=== PATIENT | male | born 1945 | race Caucasian/White ===

== ENCOUNTER → 2017-01-11 | Outpatient (CLI) | payer OTHER ==
[~2017-01-11] MED LIST: ASPI81TA21 PO; ATOR-22 PO; LPR25 PO; MULTTAB58 PO; NITR0.4S UT; PRED-301 PO
[2017-01-11 11:44] LABS: HEMATOCRIT 42.4 % (42-52); MEAN CELL VOLUME 91.4 fL (80-100); MEAN CORPUSCULAR HEMOGLOBIN 32.1 pg (25-34); MEAN CORPUSCULAR HGB CONC 35.1 g/dl (32-36); MEAN PLATELET VOLUME 10.9 fL (7.4-10.4); PLATELET COUNT 283 K/uL (130-400); RED BLOOD COUNT 4.64 M/uL (4.7-6.1); WHITE BLOOD COUNT 11.54 K/uL (4.8-10.8)
[2017-01-11 12:38] LABS: ALT/SGPT 29 U/L (12-78); AST/SGOT 22 U/L (15-37); GLUCOSE 95 mg/dl (70-99)
[2017-01-11 12:39] LABS: ALB/GLOB RATIO 0.7 (0.9-2); ALKALINE PHOSPHATASE 87 U/L (45-117); BLOOD UREA NITROGEN 10 mg/dl (7-18); BUN/CREATININE RATIO 11.6 (10-20); CARBON DIOXIDE 31 mmol/L (21-32); CHLORIDE 107 mmol/L (98-107); CHOLESTEROL 169 mg/dl (0-200); CHOLESTEROL/HDL RATIO 4.3; CREATININE 0.88 mg/dl (0.60-1.40); HDL CHOLESTEROL 39 mg/dl; LDL CHOLESTEROL CALCULATED 108 mg/dl; MAGNESIUM 2.2 mg/dl (1.8-2.4); POTASSIUM 4.2 mmol/L (3.5-5.1); SODIUM 142 mmol/L (136-145); TRIGLYCERIDES 108 mg/dl (0-150); VERY LOW DENSITY LIPOPROT CALC 22 mg/dl
== END | disposition home or self-care (01) ==
LOC: C.LABBC 08:51
PROVIDERS: ATTEND Internal Medicine Cardiovascular Disease
DX: E78.5 Hyperlipidemia, unspecified (principal); I25.10 Atherosclerotic heart disease of native coronary artery without angina pectoris; I48.91 Unspecified atrial fibrillation; E83.42 Hypomagnesemia

== ENCOUNTER → 2018-01-10 | Outpatient (CLI) | payer OTHER ==
[2018-01-10 11:10] LABS: HEMOGLOBIN 14.5 g/dL (14.0-18.0); MEAN CELL VOLUME 93.1 fL (80-100); MEAN CORPUSCULAR HEMOGLOBIN 32.2 pg (25-34); MEAN CORPUSCULAR HGB CONC 34.5 g/dl (32-36); MEAN PLATELET VOLUME 10.4 fL (7.4-10.4); PLATELET COUNT 292 K/uL (130-400); RED CELL DISTRIBUTION WIDTH CV 14.4 % (11.5-14.5); RED CELL DISTRIBUTION WIDTH SD 48.8 fL (36.4-46.3); WHITE BLOOD COUNT 10.34 K/uL (4.8-10.8)
[2018-01-10 11:53] LABS: AST/SGOT 27 U/L (15-37); GLUCOSE 101 mg/dl (70-99)
[2018-01-10 11:54] LABS: ALT/SGPT 38 U/L (12-78)
[2018-01-10 11:55] LABS: BLOOD UREA NITROGEN 16 mg/dl (7-18); CALCIUM 8.9 mg/dl (8.5-10.1); CARBON DIOXIDE 30 mmol/L (21-32); CHOLESTEROL 160 mg/dl (0-200); CREATININE 0.88 mg/dl (0.60-1.40); LDL CHOLESTEROL CALCULATED 106 mg/dl; POTASSIUM 4.2 mmol/L (3.5-5.1); SODIUM 139 mmol/L (136-145)
== END | disposition home or self-care (01) ==
LOC: C.LABBC 08:08
PROVIDERS: ATTEND Internal Medicine Cardiovascular Disease
DX: E78.5 Hyperlipidemia, unspecified (principal); I25.10 Atherosclerotic heart disease of native coronary artery without angina pectoris; I48.91 Unspecified atrial fibrillation; E83.42 Hypomagnesemia

== ENCOUNTER 2020-08-28 12:39 | Inpatient (IN) ==
[2020-08-28] MEDS ORDERED: SODIUM CHLORIDE 0.9% 1000ML 500 ML IV ONE (14:20)
--- NOTE | 2020-08-28 14:43 | Cardiology Consultation ---
Date of Consultation August 28, 2020 Assessment & Plan (1) Pericarditis: (2) Pericardial effusion with cardiac tamponade: (3) Coronary artery disease: (4) Paroxysmal atrial fibrillation: (5) S/P coronary artery stent placement: (6) Pulmonary hypertension: ASSESSMENT/PLAN: 1. Pericardial effusion with early cardiac tamponade: Early tamponade physiology on echo. Recommend fluid bolus of 500 mL. Avoid diuretics for now. Etiology likely due to rheumatoid arthritis as he has not had any recent viral illness that he is aware. Repeat echo tomorrow. Effusion is small and would avoid pericardiocentesis for now as there is no urgent indication. Hemodynamically he is stable. There is no significant pulsus paradoxus on personal exam. 2. Acute pericarditis: Likely related to rheumatoid arthritis. Aspirin 325 mg twice daily. Colchicine 0.6 mg p.o. b.i.d. x3 months. If no significant improvement, may require high-dose steroids as rheumatoid arthritis is the more likely underlying etiology. 3. Paroxysmal atrial fibrillation: Was in sinus rhythm on 08/24/2020 but curr ently in atrial fibrillation. Continue home dose of diltiazem. He has declined anticoagulation therapy and would not start currently given new pericardial effusion. 4. CAD s/p LAD PCI: Chest pain is not consistent with angina. Has had pain continually for many hours with negative troponin levels. Chest pain is consistent with pericarditis. Continue aspirin. For his pericarditis, choosing high-dose aspirin given the fact that he requires aspirin for his prior PCI. Has not tolerated beta-alonso due to significant fatigue on metoprolol. He has not tolerated Crestor or Lipitor and has declined other lipid lowering agents. 5. Pulmonary hypertension: Mild. Not previously known but has not had RVSP calculated recently. 6. Disposition: Cardiology will continue to follow. Patient care discussed with Dr. Moisés Mendoza of the primary hospitalist service. Highly complex medical issues. Thank you for allowing me to participate in the care of your patient. Please call for any other questions or concerns. Sincerely, Ciaran Gauthier M.D. History of Present Illness Reason for Consultation: CP, SOB, pericardial effusion Requesting Physician: Dr. Moisés Mendoza Attending Physician: Dr. Moisés Mendoza History of Present Illness Mr. Gatica is a pleasant 74-year-old gentleman with a history significant for CAD status post LAD stenting on 03/21/12, complicated by V. fib arrest, paroxysmal atrial fibrillation (1st diagnosed on 06/23/14), hyperlipidemia, and rheumatoid arthritis. On 03/21/12 he had stuttering angina. It eventually worsened prompting his t o drive him to the emergency department at [facility] in [place]. ECG demonstrated anterior ischemia and he underwent cardiac catheterization proximal LAD PCI as above. This was complicated by ventricular fibrillation requiring defibrillation and amiodarone therapy. His peak troponin was 8.16. Atrial fibrillation was diagnosed on 06/23/2014 in the office. He was asymptomatic and noted to be in atrial fibrillation with rapid ventricular response. A Holter monitor was applied later that day and he had already converted to sinus rhythm spontaneously. He has had the following procedures/studies: 1. Cardiac catheterization 03/21/12: PCI of proximal LAD with a 3 x 18 mm integrity BMS. LMCA distal 20%; proximal LAD had a hazy 99% stenosis with LEONARDO 2 flow, which underwent PCI. Circumflex luminal irregularities. Large ramus luminal irregularities. Dominant RCA with very large PDA which wrapped around the apex. V. fib arrest during cardiac catheterization. 2. Echo 03/24/12: Normal LV size and systolic function. EF 60-65%. Normal wall motion. RVSP normal. No significant valvular abnormalities. 3. Stress Echo 11/13/12: Negative at 94% MPHR. Negative ECG. Exercised 9 min. 4. Stress echo 11/09/13: Negative at 111% MPHR. 9 minutes 7 seconds on Gian protocol. Negative ECG. 5. Echo 07/12/14: Normal LV size, wall motion, systolic function. EF 60-65%. Mild left atrial dilation. No significant valvular abnormalities. Sinus rhythm. 6. Holter 06/23/14: Sinus rhythm. Atrial triplet. Occasional PACs. Rare PVCs. Very rare ventricular couplet. No symptoms reported. He is here today due to chest discomfort, shortness of breath, and pericardial effusion noted on CT scan. He first presented to the emergency department on 08/24/2020 with chest pain that persisted for several hours. He had negative troponin levels and ECG without ischemic changes. He was discharged home. When he felt fine for the next 2 and half days. Then last evening, after he ate supper and took a bath he developed central chest discomfort like a soreness and a gnawing pain. The pain became sharp if he laid down or took a deep breath. Throughout the night, he was unable to lie flat due to the pain and also orthopnea. His described him as being in distress. He came to the emergency department this morning and had a CT scan which was remarkable for pericardial effusion. This study was compromised by motion but there was no evidence of acute PE while the lower lobe pulmonary arteries were suboptimally evaluated. Bibasilar opacities, favoring atelectasis per Radiology. He was a lso noted to be in atrial fibrillation today while on 08/24/2020, he was in sinus rhythm. Dr. Fragoso informed me that he was hoping to admit him but that the patient wanted to be discharged. Once home, his called the on-call service to discuss his symptoms. After discussing things with he and his on the phone, I recommended that he come back to the emergency department for further evaluation. Within minutes of him arriving, I met him downstairs and we performed an echocardiogram demonstrating small pericardial effusion with early signs of tamponade physiology. He seemed much more comfortable while sitting upright and less comfortable while laying down. He tried taking nitroglycerin on 08/24 20 x 3 within 5 minutes with no improvement of his symptoms. EMS also gave more nitr oglycerin and aspirin. He recalls having pericarditis many years ago. He states that recently his rheumatoid arthritis medications have been changed. He had been on different medications for rheumatoid arthritis in the past but more recently, Arava was initiated. He then saw a new washer hand who recommended that he discontinue the medication and his last dose was on 08/25/2020. He denies fevers, chills, syncope, near-syncope, palpitations, or bleeding such as melena, hematochezia, or hematuria. Review of systems: As above. Review of systems otherwise negati ve/unremarkable. Family history: Sibling with CAD in her 60s. Family history of atrial fibrillation, rheumatoid arthritis, gastric cancer, breast cancer, CHF. Social history: Denies tobacco, alcohol, drug abuse. 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 He is . They have 6 children. 1 daughter has Bipolar disorder. 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 He is u naccompanied today. Allergies Allergy/AdvReac Type Severity Reaction Status Date / Time benzyl alcohol Allergy Intermediate swelling, Verified 08/28/20 13:44 infection etanercept Allergy Intermediate swelling, Verified 08/28/20 13:44 infection tromethamine Allergy Intermediate swelling, Verified 08/28/20 13:44 infection Home Medications Medication Instructions Recorded Confirmed Type cholecalciferol (vitamin D3) 25 1,000 units PO QAM cap 09/10/19 08/28/20 History mcg (1,000 unit) capsule magnesium oxide 400 mg (241.3 mg 400 mg PO PM tab 09/10/19 08/28/20 History magnesium) tablet aspirin 81 mg PO PM 08/24/20 08/28/20 History diltiazem HCl 120 mg PO PM 08/24/20 08/28/20 History leflunomide [Arava] 10 mg PO QAM 08/24/20 08/28/20 History prednisone 10 mg PO QAM 08/24/20 08/28/20 History acetaminophen [Tylenol Extra 1,000 mg PO Q6H PRN 08/28/20 08/28/20 History Strength] bismuth subsalicylate 525 mg PO QID 08/28/20 08/28/20 History [Pepto-Bismol] Patient History Medical History (Updated 08/28/20 @ 15:08 by Que Gauthier MD) CAD (coronary artery disease) Dyslipidemia Hypomagnesemia Myocardial infarct Paroxysmal atrial fibrillation Rheumatoid arthritis Surgical History S/P coronary artery stent placement Social History Smoking Status: Never smoker Preferred Language: Libyan Feels Safe at Home: Yes Physical Exam Physical Exam: Gen.: No acute distress. Alert and oriented. HEENT: Anicteric sclera. Neck: No appreciable JVD. No hepatic jugular reflux. No bruits. Normal carotid upstrokes bilaterally. Cardiac: PMI was nondisplaced. No ventricular heave. Irregularly irregular and mildly tachycardic. Normal S1-S2. No murmurs, rubs, or gallops. Pulmonary: Faint crackles at the bases, otherwise clear to auscultation bilaterally without wheezes, rales, or rhonchi. Abdomen: Soft, nontender, nondistended, with normoactive bowel sounds. No bruits noted. Extremities: 2+ radial pulses bilaterally. 2+ posterior tibialis pulses bilaterally. No edema or cyanosis. No palpable cords. Psychiatric: Affect appears appropriate. Results & Data ([facility]) Vital Signs (Past 12 Hours) Vital Signs Temp Pulse Resp BP Pulse Ox 08/28/20 13:31 112 H 33 H 137/97 94 08/28/20 12:58 109 H 27 H 143/97 H 97 08/28/20 12:43 36.6 C 112 H 22 97/60 L 94 Laboratory Results Labs 08/28/2020: WBC 16.06; hemoglobin 16.1; platelets 351; sodium 136; potassium 4.4; BUN 16; creatinine 1.09; glucose 133; AST 18; ALT 30; troponin undetectable; albumin 3.2; lipase 93 Diagnostic Findings ECG 08/28/2020 at 12:52 p.m.: AFib with RVR [address] chest 08/28/2020 reviewed as noted above in HPI section. PG Care Time/CCT Total # of Minutes Spent Total Time Spent with Patient: Total time spent is greater than 50% in coordination of care (as documented) at patient's floor/unit and/or counseling patient: Coding Level of Care Code 55089 Initial Inpt Care Lvl 3 Diagnoses Pericarditis I31.9 Pericardial effusion with cardiac tamponade I31.3; I31.4 Coronary artery disease I25.119 Associated angina: with unspecified angina Coronary Disease-Associated Artery/Lesion type: unspecified vessel or lesion type [place] vs. transplanted heart: [place] heart Paroxysmal atrial fibrillation I48.0 S/P coronary artery stent placement Z95.5 Pulmonary hypertension I27.20 (1) Coronary artery disease Associated angina: with unspecified angina Coronary Disease-Associated Artery/Lesion type: unspecified vessel or lesion type [place] vs. transplanted heart: [place] heart Qualified Code(s): I25.119 - Atherosclerotic heart disease of [place] coronary artery with unspecified angina pectoris
--- NOTE | 2020-08-28 14:43 | XCELERA ---
[id number]
--- NOTE | 2020-08-28 14:45 | History & Physical Report ---
Date of Service August 28, 2020 Assessment & Plan (1) Pericarditis: Classic symptoms. EKG doesn't appear to have significant ST elevations. Echo done in the ED shows pericardial effusion and signs of early tamponade. This is his second occurrence, having had an episode in his 20s that he does not remember the cause of or the treatment for. - Ddx includes autoimmune or idiopathic. Aortic dissection possibility was discussed with radiology. While the CTA chest contrast timing is not optimal for an aortic study, there is no indication on this exam of dissection. - IV fluid bolus given for early signs of tamponade on echo - ASA 325 mg PO BID & colchicine 0.6 mg PO BID - PPI daily for gastric protection - Morphine for pain - Discussed with cardiology (2) Atrial fibrillation with rapid ventricular response: Hx of paroxysmal afib with generally controlled rates and short duration. Has refused anticoagulation in the past. Now in more prolonged afib with mild RVR. - Discussed with cardiology - Defer further diltiazem gtt or stronger rate c ontrol given tamponade physiology. - Defer anticoagulation for now - Getting LE Dopplers. ED did CTA chest which was negative for significant PE. (3) Coronary artery disease: S/p [place] and LAD stent in 2011. - ASA as above (4) Rheumatoid arthritis: Sees Dr. Tiffany Mata in [place]. Had previously been on Enbrel, MTX, and prednisone, but he reports he "weaned himself off" as he felt he was too immunosuppressed. - Was recently on leflunomide, but now also off that. 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 (5) Person under investigation for COVID-19: He had close contact with a Covid(+) person on 08/21/2020. Had a rapid test that was positive, then NAAT test negative on 08/24. Presently with a cough. - Re-test given possible need for procedure inpatient. - Isolation precautions for now. (6) DVT prophylaxis: SCDs - Will be on high-dose ASA, plus may need procedure. Hold heparin for now. History of Present Illness Primary Care Provider: HARRIS Guillen 74yo M w/ hx of CAD who presents with pericarditis and pericardial effusion. Per the patient, he has had ongoing chest pain for about 3-4 weeks. He associates the pain with starting leflunomide for his rheumatoid arthritis. He reports the chest pain as centrally located with a squeezing sensation. It is worse when lying down and better when sitting forward. It is worse with deep inspiration. He reports some dizziness as well, but no nausea, no vomiting, no diaphoresis or radiation of the chest pain. Interestingly, this is his second occurrence of pericarditis. He reports in his mid-20s, he had another episode, though he does not recall a reason or what his treatment was at the time. He has visited the ED multiple times for the pain. Because the pain has been going on for some time, troponins were checked and when normal, he was sent home due to being under quarantine for a close Covid contact on 08/21/2020. He also had a positive initial test on 08/24, with the NAAT coming back negative. He is having some cough at this time. Allergies Allergy/AdvReac Type Severity Reaction Status Date / Time benzyl alcohol Allergy Intermediate swelling, Verified 08/28/20 13:44 infection etanercept Allergy Intermediate swelling, Verified 08/28/20 13:44 infection tromethamine Allergy Intermediate swelling, Verified 08/28/20 13:44 infection Home Medications Medication Instructions Recorded Confirmed Type cholecalciferol (vitamin D3) 25 1,000 units PO QAM cap 09/10/19 08/28/20 History mcg (1,000 unit) capsule magnesium oxide 400 mg (241.3 mg 400 mg PO PM tab 09/10/19 08/28/20 History magnesium) tablet aspirin 81 mg PO PM 08/24/20 08/28/20 History diltiazem HCl 120 mg PO PM 08/24/20 08/28/20 History leflunomide [Arava] 10 mg PO QAM 08/24/20 08/28/20 History prednisone 10 mg PO QAM 08/24/20 08/28/20 History acetaminophen [Tylenol Extra 1,000 mg PO Q6H PRN 08/28/20 08/28/20 History Strength] bismuth subsalicylate 525 mg PO QID 08/28/20 08/28/20 History [Pepto-Bismol] Past Med/Surg History Medical History (Updated 08/28/20 @ 15:08 by Que Gauthier MD) CAD (coronary artery disease) Dyslipidemia Hypomagnesemia Myocardial infarct Paroxysmal atrial fibrillation Rheumatoid arthritis Surgical History S/P coronary artery stent placement Social History Smoking Status: Never smoker Hx Alcohol Use: No Hx Substance Use: No Preferred Language: Albanian Communication Ability: Effective Beliefs That Will Affect Care: None Current Living Situation: Spouse Other Information That Helps Us Care for You: No Feels Safe at Home: Yes Safety Concerns: Feels Safe At This Time Assistive Devices: Denture - Lower and Glasses Review of Systems Review of Systems: All systems reviewed & are unremarkable except as noted in HPI & below Physical Exam Constitutional: WD/WN, vitals as above Eyes: EOM intact bilaterally; no conjunctival abnormality ENMT: external ear and nose normal, oropharynx normal Neck: trachea midline, no thyromegaly normal visual inspection Respiratory: normal respiratory effort, lungs clear to auscultation no respiratory distress Cardiovascular: Rate/Rhythm: + tachycardic and + irregularly irregular Heart Sounds: normal S1 and normal S2; no cardiac rub Vessels: no JVD Extremities: no edema Gastrointestinal (Abdomen): Inspection/Auscultation: abdomen normal to inspection; abdomen not distended Musculoskeletal: no cyanosis or clubbing, extremities motor strength 5/5 Skin: no rashes, warm and dry Neurologic: moves all extremities and awake Psychiatric: Orientation: alert, oriented to person and cooperative Results & Data Results & Data ([facility]) Vital Signs (Past 12 Hours) Vital Signs Temp Pulse Resp BP Pulse Ox 08/28/20 13:31 112 H 33 H 137/97 94 08/28/20 12:58 109 H 27 H 143/97 H 97 08/28/20 12:43 36.6 C 112 H 22 97/60 L 94 Code Status & VTE Plan VTE Prophylaxis Plan VTE Prophylaxis will be ordered: Yes PG Care Time/CCT Total # of Minutes Spent Total Time Spent with Patient: Total time spent is greater than 50% in coordination of care (as documented) at patient's floor/unit and/or counseling patient: Coding Level of Care Code 06138 OBS Care - Level 3 Diagnoses Pericarditis I31.9 Atrial fibrillation with rapid ventricular response I48.91 Coronary artery disease I25.119 Associated angina: with unspecified angina Coronary Disease-Associated Artery/Lesion type: unspecified vessel or les ion type [place] vs. transplanted heart: [place] heart Rheumatoid arthritis M06.9 Person under investigation for COVID-19 Z20.828 DVT prophylaxis Z29.9 (1) Coronary artery disease Associated angina: with unspecified angina Coronary Disease-Associated Artery/Lesion type: unspecified vessel or lesion type [place] vs. transplanted heart: [place] heart Qualified Code(s): I25.119 - Atherosclerotic heart disease of [place] coronary artery with unspecified angina pectoris
[2020-08-28] MEDS ORDERED: ONDANSETRON INJ 2 MG/ML 2 ML VIAL IV PRN (16:25)
[2020-08-28] MEDS ORDERED: ACETAMINOPHEN 500 MG TAB PO PRN (16:25)
[2020-08-28] MEDS ORDERED: MoRPHine SULFATE 4 MG/ML 1 ML CARP\\VIAL IV PRN (16:25)
[2020-08-28 17:35] LABS: C Reactive Protein 8.53 mg/dl (0-0.29); Thyroid Stimulating Hormone 1.14 uIu/ml (0.300-4.500)
--- NOTE | 2020-08-28 18:18 | Ultrasound Report ---
US venous doppler LE BI CLINICAL HISTORY: Bilateral lower extremity pain and swelling COMPARISON STUDY: 03/13/2014 FINDINGS: Real-time and color flow Doppler imaging were performed. Flow was seen within the femoral, popliteal and calf veins with no intraluminal thrombus demonstrated. The saphenous vein is patent. IMPRESSION: No evidence of lower extremity DVT. ACT 112: Negative or not required by law. Electronically signed by: Miguel Dumont M.D. 08/28/2020 6:17 PM
[2020-08-28] MEDS: ASPIRIN 325 MG ECTAB PO SCH (20:58)
[2020-08-28] MEDS: dilTIAZem HCL 120 MG CAPCR PO SCH (20:59)
[2020-08-28] MEDS: COLCHICINE 0.6 MG TAB PO SCH (20:59)
[2020-08-28] MEDS ORDERED: COUGH DROP (SUGAR FREE) LOZ 24 LOZ/1 BOX BUCCAL ONE (21:03)
[2020-08-29 06:29] LABS: Hematocrit (blood only) 40.2 % (42-52); Hemoglobin 13.8 g/dL (14.0-18.0); Mean Corpuscular Hemoglobin 32.8 pg (25-34); Mean Corpuscular Hgb Conc 34.3 g/dL (32-36); Mean Corpuscular Volume 95.5 fL (80-100); Mean Platelet Volume 10.5 fL (7.4-10.4); Platelet Count 267 K/uL (130-400); RDW Coefficient of Variation 14.2 % (11.5-14.5); RDW Standard Deviation 49.8 fL (36.4-46.3); Red Blood Count 4.21 M/uL (4.7-6.1); White Blood Count 12.11 K/uL (4.8-10.8)
[2020-08-29 07:03] LABS: Albumin Globulin Ratio 0.5 (0.9-2); Albumin Level 2.5 gm/dl (3.4-5.0); BUN Creatinine Ratio 16.4 (10-20); Calcium 8.7 mg/dl (8.5-10.1); Creatinine Clr Calc Pharmacy 84.8 ml/min; Est GFR (African American) 97.4; Globulin 4.9 gm/dl (2.5-4.0); Magnesium 2.1 mg/dl (1.8-2.4); Potassium 3.9 mmol/L (3.5-5.1); Total Protein 7.4 gm/dl (6.4-8.2)
[2020-08-29] MEDS: PANTOprazole 40 MG TAB PO SCH (08:03)
[2020-08-29] MEDS: ASPIRIN 325 MG ECTAB PO SCH ×2 (08:03→21:00)
[2020-08-29] MEDS: predniSONE 10 MG TABLET PO SCH (08:03)
[2020-08-29] MEDS: COLCHICINE 0.6 MG TAB PO SCH ×2 (08:03→21:00)
--- NOTE | 2020-08-29 08:53 | Ultrasound Report ---
US abdomen limited HISTORY: 74 years-old Male Elevated bilirubin; liver/gallbladder acutely elevated LFTs COMPARISON: CT abdomen pelvis 11/13/2012, CTA chest 08/28/2020. TECHNIQUE: Multiple real-time sonographic images of the abdominal right upper quadrant were obtained assessing grayscale appearance and color flow FINDINGS: The pancreas is partially obscured by bowel gas. There is increased echogenicity of the portal triads . No hepatic mass. Cholecystectomy. No ascites. Common bile duct is normal, 5 mm. No hydronephrosis. Cyst of the superior pole right kidney measures up to 1.9 cm. IMPRESSION: 1. There is increased echogenicity of the portal triads. This finding should be correlated with LFTs to exclude hepatitis. 2. Cholecystectomy. 3. No biliary ductal dilation. ACT 112: Negative or not required by law. The above report was generated using voice recognition software. It may contain grammatical, syntax o r spelling errors. Electronically signed by: Landry Salgado M.D. 08/29/2020 8:51 AM
--- NOTE | 2020-08-29 12:46 | Cardiology Progress Note ---
Date of Service August 29, 2020 Assessment & Plan (1) Pericarditis: (2) Pericardial effusion with cardiac tamponade: (3) Coronary artery disease: (4) Paroxysmal atrial fibrillation: (5) S/P coronary artery stent placement: (6) Pulmonary hypertension: ASSESSMENT/PLAN: 1. Pericardial effusion with early cardiac tamponade: Repeat echo formal interpretation is pending however on preliminary review, there appeared to be less suggestion of early tamponade. Clinically he has improved significantly. Repeat limited echo tomorrow given the fact that the effusion does appear mildly larger than yesterday. Effusion is likely due to rheumatoid arthritis flare. Continue to monitor for now without pericardiocentesis. Hemodynamically he is stable. 2. Acute pericarditis: Symptoms have improved significantly with medical therapy. Continue Aspirin 325 mg twice daily. Continue Colchicine 0.6 mg p.o. b.i.d. x3 months. 3. Paroxysmal atrial fibrillation: Was in sinus rhythm on 08/24/2020 but in AFib during this hospitalization. Continue home dose of diltiazem. He has declined anticoagulation therapy and would not start currently given new pericardial effusion. 4. CAD s/p LAD PCI: Chest pain was not consistent with angina, but rather pericarditis and has improved significantly for treatment of pericarditis. Continue aspirin. For his pericarditis, choosing high-dose aspirin given the fact that he requires aspirin for his prior PCI. Has not tolerated beta-alonso due to significant fatigue on metoprolol. He has not tolerated Crestor or Lipitor and has declined other lipid lowering agents. 5. Pulmonary hypertension: Mild. Can monitor over time. 6. Disposition: Cardiology will continue to follow. Patient care discussed with Dr. Moisés Mendoza of the primary hospitalist service. Admission and Anticipated Discharge Date Admission Date: August 28, 2020 Subjective He feels much better today. He was seen earlier this morning. His pain has nearly resolved. He denies shortness of breath. He was able to lay flat overnight and get sleep. He denies syncope, near-syncope, palpitations, edema, or bleeding. He admits that his left hand rheumatoid arthritis actually flared the same time that he developed his chest discomfort. Review of systems: As above. Physical Exam Physical Exam: Gen.: No acute distress. Alert and oriented. HEENT: Anicteric sclera. Neck: No appreciable JVD. Cardiac: PMI was nondisplaced. No ventricular heave. Irregularly irregular. Normal S1-S2. No murmurs, rubs, or gallops. Pulmonary: Faint crackles at the bases, otherwise clear to auscultation bilaterally without wheezes, rales, or rhonchi. Abdomen: Soft, nontender, nondistended, with normoactive bowel sounds. No bruits noted. Extremities: 2+ radial pulses bilaterally. 2+ posterior tibialis pulses bilaterally. No edema or cyanosis. Psychiatric: Affect appears appropriate. Results & Data ([facility]) Vital Signs (Past 12 Hours) Vital Signs Temp Pulse Pulse Resp BP Pulse Ox 08/29/20 12:10 36.9 C 90 18 127/86 93 08/29/20 08:23 36.4 C L 94 H 18 105/64 94 08/29/20 03:00 36.5 C 103 H 17 140/84 96 Laboratory Results Laboratory Results - last 24 hr 08/28/20 08/28/20 08/28/20 16:41 16:41 Unknown WBC RBC Hgb Hct MCV MCH MCHC RDW Std Deviation RDW Coeff of [place] Plt Count MPV ESR 66 H Sodium Potassium Chloride Carbon Dioxide Anion Gap BUN Creatinine Est Cr Clr Drug Dosing Est GFR ( Amer) Est GFR (Non-Af Amer) BUN/Creatinine Ratio Glucose Calcium Magnesium Total Bilirubin AST ALT Alkaline Phosphatase C-Reactive Protein 8.53 H Total Protein Albumin Globulin Albumin/Globulin Ratio TSH 1.140 SARS-CoV-2 Ag (Rapid) Negative 08/29/20 08/29/20 06:01 06:01 WBC 12.11 H RBC 4.21 L Hgb 13.8 L Hct 40.2 L MCV 95.5 MCH 32.8 MCHC 34.3 RDW Std Deviation 49.8 H RDW Coeff of [place] 14.2 Plt Count 267 MPV 10.5 H ESR Sodium 136 Potassium 3.9 Chloride 105 Carbon Dioxide 28 Anion Gap 4.0 BUN 14 Creatinine 0.88 Est Cr Clr Drug Dosing 84.8 Est GFR ( Amer) 97.4 Est GFR (Non-Af Amer) 84.0 BUN/Creatinine Ratio 16.4 Glucose 89 Calcium 8.7 Magnesium 2.1 Total Bilirubin 2.0 H D AST 16 ALT 22 Alkaline Phosphatase 70 C-Reactive Protein Total Protein 7.4 Albumin 2.5 L Globulin 4.9 H Albumin/Globulin Ratio 0.5 L TSH SARS-CoV-2 Ag (Rapid) Diagnostic Findings Telemetry personally reviewed: Atrial fibrillation. Ventricular triplet. Venous Doppler 08/28/2020: No DVT bilateral lower extremities. Abdominal ultrasound 08/29/2020: Increased echogenicity of the portal triad. Cholecystectomy. No biliary ductal dilation. Limited echo 08/29/2020: Images have been personally reviewed. Preliminary review demonstrated normal LV systolic function. Pericardial effusion appears mildly larger compared to yesterday but less suggestion of early tamponade physiology. Formal review to follow. Medications Administered Current Inpatient Medications Acetaminophen (Acetaminophen 500 Mg Tab) 1,000 mg PO Q6H PRN PRN Reason: Pain Stop: 09/27/20 16:24 Aspirin (Aspirin 325 Mg Ectab) 325 mg PO BID ALICIA Stop: 09/27/20 20:59 Last Admin: 08/29/20 08:03 Dose: 325 mg Documented by: Colchicine (Colchicine 0.6 Mg Tab) 0.6 mg PO BID ALICIA Stop: 09/27/20 20:59 Last Admin: 08/29/20 08:03 Dose: 0.6 mg Documented by: Diltiazem HCl (Diltiazem Hcl 120 Mg Capcr) 120 mg PO PM ALICIA Stop: 09/27/20 20:59 Last Admin: 08/28/20 20:59 Dose: 120 mg Documented by: Morphine Sulfate (Morphine Sulfate 4 Mg/Ml 1 Ml Carp\Vial) 3 mg IV Q4H PRN PRN Reason: Pain Stop: 09/11/20 16:24 Last Admin: 08/28/20 16:38 Dose: 3 mg Documented by: Ondansetron HCl (Ondansetron Inj 2 Mg/Ml 2 Ml Vial) 4 mg IV Q4H PRN PRN Reason: Nausea Stop: 09/27/20 16:24 Pantoprazole Sodium (Pantoprazole 40 Mg Tab) 40 mg PO DAILY ALICIA Stop: 09/28/20 08:59 Last Admin: 08/29/20 08:03 Dose: 40 mg Documented by: Prednisone (Prednisone 10 Mg Tablet) 10 mg PO QAM ALICIA Stop: 09/28/20 08:59 Last Admin: 08/29/20 08:03 Dose: 10 mg Documented by: PG Care Time/CCT Total # of Minutes Spent Total Time Spent with Patient: Total time spent is greater than 50% in coordination of care (as documented) at patient's floor/unit and/or counseling patient: Coding Level of Care Code 69097 Subseq Hosp Care Lvl 3 Diagnoses Pericarditis I31.9 Pericardial effusion with cardiac tamponade I31.3; I31.4 Coronary artery disease I25.119 Associated angina: with unspecified angina Coronary Disease-Associated Artery/Lesion type: unspecified vessel or lesion type [place] vs. transplanted heart: [place] heart Paroxysmal atrial fibrillation I48.0 S/P coronary artery stent placement Z95.5 Pulmonary hypertension I27.20 (1) Coronary artery disease Associated angina: with unspecified angina Coronary Disease-Associated Artery/Lesion type: unspecified vessel or lesion type [place] vs. transplanted heart: [place] heart Qualified Code(s): I25.119 - Atherosclerotic heart disease of [place] coronary artery with unspecified angina pectoris
--- NOTE | 2020-08-29 14:46 | Hospitalist Progress Note ---
Date of Service August 29, 2020 Assessment & Plan (1) Pericarditis: Classic symptoms. EKG doesn't appear to have significant ST elevations. Echo done in the ED shows pericardial effusion and signs of early tamponade. This is his second occurrence, having had an episode in his 20s that he does not remember the cause of or the treatment for. - Ddx includes autoimmune or idiopathic. Aortic dissection possibility was discussed with radiology. While the CTA chest contrast timing is not optimal for an aortic study, there is no indication on this exam of dissection. - IV fluid bolus given for early signs of tamponade on echo - ASA 325 mg PO BID & colchicine 0.6 mg PO BID - PPI daily for gastric protection - Morphine for pain - Discussed with cardiology -> Improving today. Only needed 1 dose of morphine last night. However, effusion is larger, so will monitor another night. (2) Atrial fibrillation with rapid ventricular response: Hx of paroxysmal afib with generally controlled rates and short duration. Has refused anticoagulation in the past. Now in more prolonged afib with mild RVR. - Discussed with cardiology - Deferred further diltiazem gtt or stronger rate control given tamponade physiology. - LE Dopplers were negative this admission. - Defer anticoagulation for now (3) Coronary artery disease: S/p DC and LAD stent in 2011. - ASA as above (4) Rheumatoid arthritis: Sees Dr. Tiffany Mata in [place]. Had previously been on Enbrel, MTX, and prednisone, but he reports he "weaned himself off" as he felt he was too immunosuppressed. - Was recently on leflunomide, but now also off that. 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 (5) Person under investigation for COVID-19: He had close contact with a Covid(+) person on 08/21/2020. Had a rapid test that was positive, then NAAT test negative on 08/24. Presently with a cough. - Retested given possible need for procedure inpatient. Negative. - No need for isolation precautions. (6) DVT prophylaxis: SCDs - Will be on high-dose ASA, plus may need procedure. Hold heparin for now. Admission and Anticipated Discharge Date Admission Date: August 28, 2020 Subjective Feels a lot better today. The chest pain is down to 2-3/10. Can lie flat without much issue. Reports no fevers/chills, shortness of breath, abdominal pain, nausea, or vomiting. Physical Exam Constitutional: WD/WN, vitals as above Eyes: EOM intact bilaterally; no conjunctival abnormality ENMT: external ear and nose normal, oropharynx normal Neck: trachea midline, no thyromegaly normal visual inspection Respiratory: normal respiratory effort, lungs clear to auscultation no respiratory distress Cardiovascular: Rate/Rhythm: regular rate and + irregularly irregular Heart Sounds: normal S1 and normal S2; no cardiac rub Vessels: no JVD Extremities: no edema Gastrointestinal (Abdomen): Inspection/Auscultation: abdomen normal to inspection; abdomen not distended Musculoskeletal: no cyanosis or clubbing, extremities motor strength 5/5 Skin: no rashes, warm and dry Neurologic: moves all extremities and awake Psychiatric: Orientation: alert, oriented to person and cooperative Results & Data Results & Data ([facility]) Vital Signs (Past 12 Hours) Vital Signs Temp Pulse Pulse Resp BP Pulse Ox 08/29/20 12:10 36.9 C 90 18 127/86 93 08/29/20 08:23 36.4 C L 94 H 18 105/64 94 08/29/20 03:00 36.5 C 103 H 17 140/84 96 PG Care Time/CCT Total # of Minutes Spent Total Time Spent with Patient: Total time spent is greater than 50% in coordination of care (as documented) at patient's floor/unit and/or counseling patient: Coding Level of Care Code 54295 Subseq Hosp Care Lvl 2 Diagnoses Pericarditis I31.9 Atrial fibrillation with rapid ventricular response I48.91 Coronary artery disease I25.119 Associated angina: with unspecified angina Coronary Disease-Associated Artery/Lesion type: unspecified vessel or lesion type [place] vs. transplanted heart: [place] heart Rheumatoid arthritis M06.9 Person under investigation for COVID-19 Z20.828 DVT prophylaxis Z29.9 (1) Coronary artery disease Associated angina: with unspecified angina Coronary Disease-Associated Artery/Lesion type: unspecified vessel or lesion type [place] vs. transplanted heart: [place] heart Qualified Code(s): I25.119 - Atherosclerotic heart disease of [place] coronary artery with unspecified angina pectoris
--- NOTE | 2020-08-29 15:03 | XCELERA ---
[id number] \\[id number]___[id number]
[2020-08-29] MEDS ORDERED: SODIUM CHLORIDE 0.9% 500 ML IV SCH (15:15)
[2020-08-29] MEDS: dilTIAZem HCL 120 MG CAPCR PO SCH (21:00)
[2020-08-30 07:07] LABS: Hematocrit (blood only) 39.5 % (42-52); Hemoglobin 13.3 g/dL (14.0-18.0); Mean Corpuscular Hemoglobin 32.6 pg (25-34); Mean Corpuscular Hgb Conc 33.7 g/dL (32-36); Mean Corpuscular Volume 96.8 fL (80-100); Mean Platelet Volume 10.7 fL (7.4-10.4); Platelet Count 271 K/uL (130-400); RDW Coefficient of Variation 14.1 % (11.5-14.5); RDW Standard Deviation 50.5 fL (36.4-46.3); Red Blood Count 4.08 M/uL (4.7-6.1); White Blood Count 10.51 K/uL (4.8-10.8)
[2020-08-30 07:47] LABS: Albumin Globulin Ratio 0.5 (0.9-2); Albumin Level 2.3 gm/dl (3.4-5.0); BUN Creatinine Ratio 22.2 (10-20); Bilirubin,Total 0.6 mg/dl (0.2-1); Calcium 8.5 mg/dl (8.5-10.1); Creatinine Clr Calc Pharmacy 109.7 ml/min; Est GFR (African American) 108.3; Est GFR (Non-African American) 93.4; Potassium 3.8 mmol/L (3.5-5.1); Total Protein 7.3 gm/dl (6.4-8.2)
[2020-08-30] MEDS: COLCHICINE 0.6 MG TAB PO SCH (08:40)
[2020-08-30] MEDS: PANTOprazole 40 MG TAB PO SCH (08:40)
[2020-08-30] MEDS: ASPIRIN 325 MG ECTAB PO SCH (08:40)
[2020-08-30] MEDS: predniSONE 10 MG TABLET PO SCH (08:40)
--- NOTE | 2020-08-30 10:15 | Cardiology Progress Note ---
Date of Service August 30, 2020 Assessment & Plan (1) Pericarditis: (2) Pericardial effusion with cardiac tamponade: (3) Coronary artery disease: (4) Paroxysmal atrial fibrillation: (5) S/P coronary artery stent placement: (6) Pulmonary hypertension: ASSESSMENT/PLAN: 1. Pericardial effusion with early cardiac tamponade: Pericardial effusion now appears stable in size. He is now asymptomatic and feels back to baseline. Will repeat echo as an outpatient in 1-2 weeks. This appointment is being scheduled to the cardiology office. 2. Acute pericarditis: Symptoms have improved significantly with medical therapy. Continue Aspirin 325 mg twice daily for 1 week from discharge and then resume 81 mg daily for CAD with PCI. If he has recurrent pain, can take aspirin 325 mg once daily as needed for pain. Continue Colchicine 0.6 mg p.o. b.i.d. x3 months. 3. Paroxysmal atrial fibrillation: Was in sinus rhythm on 08/24/2020 but in AFib during this hospitalization. Increase diltiazem to 180 mg daily as he is more tachycardic with light exertion. He has declined anticoagulation therapy and would not start currently given new pericardial effusion. 4. CAD s/p LAD PCI: Chest pain was not consistent with angina, but rather pericarditis and has improved significantly for treatment of pericarditis. Continue aspirin as outlined above. For his pericarditis, choosing high-dose aspirin given the fact that he requires aspirin for his prior PCI. Has not tolerated beta-alonso due to significant fatigue on metoprolol. He has not tolerated Crestor or Lipitor and has declined other lipid lowering agents. 5. Pulmonary hypertension: Mild. Can monitor over time. 6. Disposition: Follow-up with me in 1-2 weeks in outpatient setting with echo. Patient care communicated with Dr. Moisés Mendoza of the primary hospitalist service. Admission and Anticipated Discharge Date Admission Date: August 29, 2020 Subjective He feels back to his baseline. He denies chest pain, shortness of breath, orthopnea, syncope, near-syncope, palpitations, or edema. He tolerated ambulation in the hallway without symptoms. He feels comfortable going home today. Review of systems: As above. Physical Exam Physical Exam: Gen.: No acute distress. Alert and oriented. HEENT: Anicteric sclera. Neck: No appreciable JVD. Cardiac: PMI was nondisplaced. No ventricular heave. Irregularly irregular in the 80s to 90s. Normal S1-S2. No murmurs, rubs, or gallops. Pulmonary: Clear to auscultation bilaterally without wheezes, rales, or rhonchi. Abdomen: Soft, nontender, nondistended, with normoactive bowel sounds. No bruits noted. Extremities: 2+ radial pulses bilaterally. 2+ posterior tibialis pulses bilaterally. No edema or cyanosis. Psychiatric: Affect appears appropriate. Results & Data ([facility]) Vital Signs (Past 12 Hours) Vital Signs Temp Pulse Pulse Resp BP Pulse Ox 08/30/20 08:09 36.6 C 74 17 129/69 94 08/30/20 04:13 36.8 C 91 H 19 116/71 95 08/29/20 23:36 36.9 C 90 18 130/65 93 Laboratory Results Laboratory Results - last 24 hr 08/30/20 08/30/20 06:19 06:19 WBC 10.51 RBC 4.08 L Hgb 13.3 L Hct 39.5 L MCV 96.8 MCH 32.6 MCHC 33.7 RDW Std Deviation 50.5 H RDW Coeff of Rodolfo 14.1 Plt Count 271 MPV 10.7 H Sodium 139 Potassium 3.8 Chloride 109 H Carbon Dioxide 26 Anion Gap 5.0 BUN 15 Creatinine 0.68 Est Cr Clr Drug Dosing 109.7 Est GFR ( Amer) 108.3 Est GFR (Non-Af Amer) 93.4 BUN/Creatinine Ratio 22.2 H Glucose 84 Calcium 8.5 Total Bilirubin 0.6 D AST 18 ALT 22 Alkaline Phosphatase 69 Total Protein 7.3 Albumin 2.3 L Globulin 5.0 H Albumin/Globulin Ratio 0.5 L Diagnostic Findings Telemetry personally reviewed: Atrial fibrillation with reasonable heart rate control. He did become more tachycardic with ambulation yesterday. Limited echo 08/30/2020: Images personally reviewed: Normal LV systolic function. Pericardial effusion appears stable in size. Formal review to follow. Medications Administered Current Inpatient Medications Acetaminophen (Acetaminophen 500 Mg Tab) 1,000 mg PO Q6H PRN PRN Reason: Pain Stop: 09/27/20 16:24 Aspirin (Aspirin 325 Mg Ectab) 325 mg PO BID ALICIA Stop: 09/27/20 20:59 Last Admin: 08/30/20 08:40 Dose: 325 mg Documented by: Colchicine (Colchicine 0.6 Mg Tab) 0.6 mg PO BID ALICIA Stop: 09/27/20 20:59 Last Admin: 08/30/20 08:40 Dose: 0.6 mg Documented by: Diltiazem HCl (Diltiazem Hcl 120 Mg Capcr) 120 mg PO PM ALICIA Stop: 09/27/20 20:59 Last Admin: 08/29/20 21:00 Dose: 120 mg Documented by: Morphine Sulfate (Morphine Sulfate 4 Mg/Ml 1 Ml Carp\Vial) 3 mg IV Q4H PRN PRN Reason: Pain Stop: 09/11/20 16:24 Last Admin: 08/28/20 16:38 Dose: 3 mg Documented by: Ondansetron HCl (Ondansetron Inj 2 Mg/Ml 2 Ml Vial) 4 mg IV Q4H PRN PRN Reason: Nausea Stop: 09/27/20 16:24 Pantoprazole Sodium (Pantoprazole 40 Mg Tab) 40 mg PO DAILY ALICIA Stop: 09/28/20 08:59 Last Admin: 08/30/20 08:40 Dose: 40 mg Documented by: Prednisone (Prednisone 10 Mg Tablet) 10 mg PO QAM ALICIA Stop: 09/28/20 08:59 Last Admin: 08/30/20 08:40 Dose: 10 mg Documented by: PG Care Time/CCT Total # of Minutes Spent Total Time Spent with Patient: Total time spent is greater than 50% in coordination of care (as documented) at patient's floor/unit and/or counseling patient: Coding Level of Care Code 09937 Subseq Hosp Care Lvl 3 Diagnoses Pericarditis I31.9 Pericardial effusion with cardiac tamponade I31.3; I31.4 Coronary artery disease I25.119 Associated angina: with unspecified angina Coronary Disease-Associated Artery/Lesion type: unspecified vessel or lesion type [place] vs. transplanted heart: [place] heart Paroxysmal atrial fibrillation I48.0 S/P coronary artery stent placement Z95.5 Pulmonary hypertension I27.20 (1) Coronary artery disease Associated angina: with unspecified angina Coronary Disease-Associated Artery/Lesion type: unspecified vessel or lesion type [place] vs. transplanted heart: [place] heart Qualified Code(s): I25.119 - Atherosclerotic heart disease of [place] coronary artery with unspecified angina pectoris
--- NOTE | 2020-08-30 10:55 | XCELERA ---
[id number]
--- NOTE | 2020-08-30 17:12 | Discharge Summary ---
Date of Service August 30, 2020 Admission HPI Per Admitting Provider 74yo M w/ hx of CAD who presents with pericarditis and pericardial effusion. Per the patient, he has had ongoing chest pain for about 3-4 weeks. He associates the pain with starting leflunomide for his rheumatoid arthritis. He reports the chest pain as centrally located with a squeezing sensation. It is worse when lying down and better when sitting forward. It is worse with deep inspiration. He reports some dizziness as well, but no nausea, no vomiting, no diaphoresis or radiation of the chest pain. Interestingly, this is his second occurrence of pericarditis. He reports in his mid-20s, he had another episode, though he does not recall a reason or what his treatment was at the time. He has visited the ED multiple times for the pain. Because the pain has been going on for some time, troponins were checked and when normal, he was sent home due to being under quarantine for a close Covid contact on 08/21/2020. He also had a positive initial test on 08/24, with the NAAT coming back negative. He is having some cough at this time. Principal Diagnosis Pericarditis Discharge Exam Constitutional WD/WN, vitals as above Eyes EOM intact bilaterally; no conjunctival abnormality ENMT external ear and nose normal, oropharynx normal Neck trachea midline, no thyromegaly normal visual inspection Respiratory normal respiratory effort, lungs clear to auscultation no respiratory distress Cardiovascular Rate/Rhythm: regular rate and + irregularly irregular Heart Sounds: normal S1 and normal S2; no cardiac rub Vessels: no JVD Extremities: no edema Gastrointestinal (Abdomen) Inspection/Auscultation: abdomen normal to inspection; abdomen not distended Musculoskeletal no cyanosis or clubbing, extremities motor strength 5/5 Skin no rashes, warm and dry Neurologic moves all extremities and awake Psychiatric Orientation: alert, oriented to person and cooperative Discharge Data Allergies Allergy/AdvReac Type Severity Reaction Status Date / Time benzyl alcohol Allergy Intermediate swelling, Verified 08/28/20 13:44 infection etanercept Allergy Intermediate swelling, Verified 08/28/20 13:44 infection tromethamine Allergy Intermediate swelling, Verified 08/28/20 13:44 infection Consultations 08/28/20 16:25 Consult Cardiology Routine Ordered Studies 08/28/20 16:25 US venous doppler LE BI Urgent 08/29/20 07:38 US abdomen limited Routine Hospital Course (1) Pericarditis: Classic symptoms. EKG doesn't appear to have significant ST elevations. Echo done in the ED shows pericardial effusion and signs of early tamponade. This is his second occurrence, having had an episode in his 20s that he does not remember the cause of or the treatment for. - Did remarkably well on ASA 325 mg PO BID. Continue x 1 week. Discharged on colchicine 0.6 mg PO daily x 3 months (dose lowered for interaction with diltiazem). - Encouraged to speak with Dr. aMta for consideration of stronger RA control which may help recurrence. = Will see Dr. Gauthier in 1 week for repeat echo. (2) Atrial fibrillation with rapid ventricular response: Hx of paroxysmal afib with generally controlled rates and short duration. Has refused anticoagulation in the past. Now in more prolonged afib with mild RVR. - Discussed with cardiology - Deferred further diltiazem gtt or stronger rate control given tamponade physiology. - LE Dopplers were negative this admission. - Defer anticoagulation for now (3) Coronary artery disease: S/p CT and LAD stent in 2011. - ASA as above (4) Rheumatoid arthritis: Sees Dr. Tiffany Mata in [place]. Had previously been on Enbrel, MTX, and prednisone, but he reports he "weaned himself off" as he felt he was too immunosuppressed. - Was recently on leflunomide, but now also off that. 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 - As above, asked him to follow up with Dr. Mata in the clinic soon to discuss more significant RA control in case this can help prevent recurrence. (5) Person under investigation for COVID-19: He had close contact with a Covid(+) person on 08/21/2020. Had a rapid test that was positive, then NAAT test negative on 08/24. Presently with a cough. - Retested given possible need for procedure inpatient. Negative. - No need for isolation precautions. (6) DVT prophylaxis: SCDs - Will be on high-dose ASA, plus may need procedure. Hold heparin for now. Total Time Total Time Spent Total Time Spent (In Minutes): 35 Discharge Plan Discharge Items Patient Disposition: Home - Self-Care Reason For Visit: PERICARDITIS Discharge Diagnosis: Pericarditis - inflammation of the lining of the heart Activity: Resume your previous activity Non-emergency contact: Primary Care Provider, Specialist and Investigative Writer Call non-emergency contact if: your symptoms worsen, your pain is not controlled and your pain is worsening Follow-up/Referrals: Que Gauthier MD [Emergency Provider] - 09/12/20 8:45 am (Please follow up with Dr. Gauthier in 1 week for repeat echo and follow up. ) Tiffany Mata MD, PhD [Physician] - 09/06/20 2:00 pm (Please see Dr. Mata in 1-2 weeks to discuss the pericarditis and any arthritis treatment.) Mariana López CRNP [Primary Care Provider] - 09/06/20 11:10 am Diet: Heart Healthy Addtl Attending Provider Instructions: Mr. Gatica, You were admitted to the hospital for chest pain that turned out to be pericarditis (inflammation of the lining of the heart). This also caused some fluid to build up around the heart. Luckily, with treatment of aspirin, your inflammation and pain have dramatically improved. Please take a full strength (325 mg) aspirin two times per day for 1 week. You can then switch back to one baby aspirin (81 mg) once per day after that. Please take the colchicine once a day for the next 3 months. I have sent a full, 3- month supply to your pharmacy. We discussed this as twice a day, but will reduce the dose per pharmacy to prevent side effects. Dr. Gauthier and I discussed this and are in agreement. Also, please hold off on Pepto-Bismol for now. It actually has aspirin in it, and could upset your stomach. Stick with Maalox or Tums for stomach aches. We also increased your diltiazem dose to help keep your heart rate and blood pressure under control. If you have an automated blood pressure cuff, please check your blood pressure once a day to be sure your heart rate and blood pressure are good. Please see Dr. Gauthier in the next week for a repeat echo and follow up. IMPORTANT: Please see Dr. Mata in the next week or two. Dr. Gauthier and I believe this could be related to your rheumatoid arthritis, and it is possible that more control of your arthritis may also prevent a recurrence of pericarditis. Pending Studies at Discharge: No Stand-Alone Forms: [facility], Smoking Cessation Medications and DC Order Prescriptions: New aspirin [Ecotrin] 325 mg Tablet,Delayed Release (Dr/Ec) 325 mg PO BID Qty: 14 RF: 0 pantoprazole 40 mg Tablet,Delayed Release (Dr/Ec) 40 mg PO DAILY Qty: 30 RF: 0 colchicine [Colcrys] 0.6 mg Tablet 0.6 mg PO DAILY Qty: 90 RF: 0 diltiazem HCl 180 mg capsule,extended release 24 hr 180 mg PO DAILY Qty: 30 RF: 0 Continued cholecalciferol (vitamin D3) 25 mcg (1,000 unit) capsule 1,000 units PO QAM RF: 0 magnesium oxide 400 mg (241.3 mg magnesium) tablet 400 mg PO PM RF: 0 acetaminophen [Tylenol Extra Strength] 500 mg Tablet 1,000 mg PO Q6H PRN (Reason: Pain) RF: 0 prednisone 5 mg tablet 10 mg PO QAM RF: 0 Discontinued Pepto-Bismol 525 mg/15 mL Suspension 525 mg PO QID RF: 0 leflunomide [Arava] 10 mg tablet 10 mg PO QAM RF: 0 aspirin 81 mg Tablet,Delayed Release (Dr/Ec) 81 mg PO PM RF: 0 Discharge Orders: Discharge Order (Routine); Ordered 08/30/20 Ordered By: Moisés Mendoza Admission Data Admit Date/Time: 08/29/20 18:11 Attending Provider: Moisés Mendoza Admit Provider: Moisés Mendoza Primary Care Provider: Mariana López Other Providers: Que Gauthier Other Interventions: Discharge Summary Assessment (RN) Last Done: 08/30/20 11:17 Coding Level of Care Code D/C Day Management >30 mins Diagnoses Pericarditis I31.9 Atrial fibrillation with rapid ventricular response I48.91 Coronary artery disease I25.119 Associated angina: with unspecified angina Coronary Disease-Associated Artery/Lesion type: unspecified vessel or lesion type [place] vs. transplanted heart: nikolai heart Rheumatoid arthritis M06.9 Person under investigation for COVID-19 Z20.828 DVT prophylaxis Z29.9
== END 2020-08-30 11:40 | disposition home or self-care (01) | DRG 316 ==
LOC: 2S 12:39 → ED 12:39 → 2S 15:49

== ENCOUNTER 2024-04-18 19:47 | Inpatient (IN) ==
[2024-04-18 20:18] LABS: Basophils # (auto) 0.03 K/uL (0.00-0.20); Basophils % (auto) 0.1 %; Eosinophils # (auto) 0.03 K/uL (0.00-0.50); Eosinophils % (auto) 0.1 %; Hematocrit (blood only) 41.2 % (42.0-52.0); Hemoglobin 14.1 g/dl (14.0-18.0); Immature Granulocytes # (auto) 0.07 K/uL (0.01-0.20); Immature Granulocytes % (auto) 0.3 %; Lymphocytes # (auto) 3.01 K/uL (1.20-3.40); Lymphocytes % (auto) 14.8 %; Mean Corpuscular Hemoglobin 32.6 pg (25.0-34.0); Mean Corpuscular Hgb Conc 34.2 g/dL (32.0-36.0); Mean Corpuscular Volume 95.2 fL (80.0-100.0); Mean Platelet Volume 10.6 fL (9.4-12.4); Monocytes % (auto) 5.4 %; Neutrophils # (auto) 16.14 K/uL (1.40-6.50); Neutrophils % (auto) 79.3 %; Platelet Count 257 K/uL (130-400); RDW Coefficient of Variation 13.7 % (11.5-14.5); RDW Standard Deviation 48.6 fL (36.4-46.3); Red Blood Count 4.33 M/uL (4.70-6.10); White Blood Count 20.38 K/ul (4.8-10.8)
[2024-04-18 20:25] LABS: Base Excess VBG 6.1 mEq/L; HCO3 VBG 32 mmol/L; Oxygen Saturation VBG < 60.0 %; PCO2 VBG 49 mmHg (38-50); PO2 VBG 24 mmHg; pH VBG 7.42 (7.36-7.41)
--- NOTE | 2024-04-18 20:38 | Emergency Department Note ---
Impression & Plan Shortness of breath, Cough, Leukocytosis, Pneumonia, COVID-19, Sepsis ED Provider Note HISTORY OF PRESENT ILLNESS: Patient is a 78-year-old male presenting with cough and shortness of breath. Patient reports he tested positive for COVID on 04/10/2024. He states that he has been having progressively worsening symptoms over the last 8 days. He states that he is unable to lie flat at night secondary to feeling like his throat is closing and his chest is "collapsing." He states he feels very wheezy and short of breath with minimal amounts of exertion. He is on Eliquis for history of A- fib. He denies any chest pain. Reports a history of 1 cardiac stent. He denies any DVT or PE history. He denies any lower extremity edema. He denies any fevers. He reports has been using Robitussin and Tessalon Perles, with little relief in his cough. ROS: as above PHYSICAL EXAM: Constitutional: Patient appears in no acute distress. HENT: Head: Normocephalic and atraumatic. Eyes: EOMI, PERRL Mouth/Throat: Mucous membranes moist. Neck: Trachea midline. Neck supple. Cardiovascular: Irregular rhythm. No murmurs, rubs or gallops. Intact distal pulses. Pulmonary/Chest: No respiratory distress. Breath sounds clear and equal bilaterally. Expiratory wheezes bilaterally. Abdominal: Abdomen soft, no tenderness, rebound or guarding. Musculoskeletal: No edema, tenderness or deformity noted. Skin: Warm and dry. No rash, erythema, pallor or cyanosis Psychiatric: Appropriate mood and affect for situation. Neurological: Alert and keenly responsive. CN II-XII grossly intact, moving all extremities equally and fully. MDM: - Vitals signs showed hypertension and tachycardia. - History obtained via patient. History as above. - Chronic conditions affecting care: CAD (s/p PCI); paroxysmal Afib; HLD; HTN - Differential diagnoses include, but are not limited to: Congestive heart failure; acute coronary syndrome; COPD/asthma exacerbation; pulmonary edema; pulmonary embolism; pneumonia; pneumothorax; viral syndrome - Order placed for continuous cardiac monitoring. At this time, monitor showed rate of 96 bpm with irregular rhythm, per my interpretation. - External medical records reviewed. Express care note dated 04/13/2024 was reviewed. Patient was COVID-positive. He was prescribed an albuterol inhaler and benzonatate - EKG interpreted by myself showed atrial fibrillation. Rate 97 bpm. QT 330. No acute ischemic changes. Significant artifact at baseline. - Patient given a DuoNeb treatment in the ER. - Laboratory workup interpreted by myself showed leukocytosis (WBC 20.38) with left shift; normal PT/INR; normal lactate; stable electrolytes; normal troponin; elevated BNP (165); normal procalcitonin - COVID positive - VBG grossly normal - CXR looks like a right-sided consolidation, per my interpretation. - CT PE negative for PE. However, noted to have central bronchial wall thickening with scattered areas of infiltrate in both the lower lobes consistent with bronchitis and developing pneumonia. - Patient has been on steroids, so unclear if his significant leukocytosis is slightly confounded by reactivity from the steroids. However, given the CT imaging of pneumonia and his symptoms, will treat for pneumonia. Blood cultures obtained. IV Zosyn ordered. - Given 1L NS in ER. Patient does meet sepsis criteria at this point, given his tachycardia, leukocytosis, tachypnea and known source of infection. Patient's sepsis fluid volume calculation based on ideal body weight is 2345.40 mL. No further fluids were ordered at this time, given patient's elevated BNP. He did have an echocardiogram that showed an EF of 65 to 70%. However, the patient is having orthopnea at this time so further fluids were held. - Discussion was had with lead case manager about patient's case and need for admission - Hospitalist, Dr. Song, consulted for admission - [facility] ASSESSMENT AND PLAN: Diagnosis: COVID-19 infection; shortness of breath; cough; leukocytosis; bilateral pneumonia; sepsis Plan: admit Past Med/Surg History Problem List (Updated 04/18/24 @ 23:06 by Lashawn Guaman MD) Sepsis (Acute) COVID-19 (Acute) Pneumonia (Acute) Leukocytosis (Acute) Cough (Acute) Shortness of breath (Acute) Syncope Sensorineural hearing loss (SNHL) of right ear with restricted hearing of left ear Long-term current use of steroids Anticoagulant long-term use COVID-19 (Acute) Paroxysmal ventricular tachycardia Encounter for pre-operative examination Pulmonary hypertension Pericardial effusion with cardiac tamponade DVT prophylaxis Pericarditis Person under investigation for COVID-19 (Acute) Chest pain (Acute) Rheumatoid arthritis Hypomagnesemia Dyslipidemia Paroxysmal atrial fibrillation S/P coronary artery stent placement (Acute) CAD (coronary artery disease) (Acute) halfway (current) use of inhaled steroids Medical History History of pericarditis Myocardial infarction Surgical History History of cataract surgery History of cholecystectomy History of spinal fusion History of cardiac cath H/O heart artery stent Family History Father Colon cancer Other No family history of adverse response to anesthesia Social History Smoking Status: Never smoker Second Hand Exposure: No; Do You Dip or Chew Tobacco: No; Hx Alcohol Use: No Hx Substance Use: No Preferred Language: Mozambican Communication Ability: Effective Manager Health Required: No Beliefs That Will Affect Care: None Current Living Situation: Spouse Feels Safe at Home: Yes Assistive Devices: Denture - Lower Allergies Allergies Allergy/AdvReac Type Severity Reaction Status Date / Time benzyl alcohol Allergy Intermediate swelling, Verified 04/13/24 12:06 infection etanercept Allergy Intermediate swelling, Verified 04/13/24 12:06 infection tromethamine Allergy Intermediate swelling, Verified 04/13/24 12:06 infection Home Meds Home Medications Medication Instructions Recorded Confirmed magnesium oxide 400 mg (241.3 mg 400 mg PO PM 09/10/19 04/13/24 magnesium) tablet acetaminophen 500 mg tablet 1,000 mg PO Q6H PRN Pain 08/28/20 04/13/24 (Tylenol Extra Strength) aspirin 81 mg tablet,delayed 81 mg PO QPM 10/19/20 04/13/24 release prednisone 5 mg tablet 5 mg PO QAM 10/30/21 04/13/24 nitroglycerin 0.4 mg sublingual 0.4 mg sublingual Q5M PRN Chest 05/25/22 04/13/24 tablet Pain pravastatin 40 mg tablet 40 mg PO DAILY 09/02/23 04/13/24 multivitamin 1 tab PO DAILY 11/15/23 04/13/24 Previous Rx's Medication Instructions Recorded tamsulosin 0.4 mg capsule 0.4 mg PO DAILY #30 caps 05/25/22 ondansetron 4 mg disintegrating 4 mg PO Q8H PRN nausea and 07/18/22 tablet vomiting #30 tabs apixaban 5 mg tablet (Eliquis) 5 mg PO BID #180 tabs 08/23/23 diltiazem HCl 120 mg 120 mg PO PM #90 caps 08/23/23 capsule,extended release 24 hr hydroxychloroquine 200 mg tablet 200 mg PO HS #90 tabs 03/03/24 (Plaquenil) albuterol sulfate 90 mcg/actuation 2 inh inhalation Q6H PRN shortness 04/13/24 breath activated powder inhaler of breath or wheezing #1 ea benzonatate 100 mg capsule 100 mg PO TID PRN cough #30 caps 04/13/24 Results & Data (ED) Vital Signs Vital Signs - 24 hr 04/18/24 19:48 04/18/24 19:51 04/18/24 20:05 Temperature 36.9 C Temperature Source Temporal Artery Scan Pulse Rate 104 H 95 H Pulse Rate from SpO2 Sensor Pulse Rhythm Respiratory Rate 18 Respiratory Effort / Characteristics Respiratory Depth Respiratory Pattern Blood Pressure 165/75 H 140/83 Blood Pressure Mean 105 91 Pulse Oximetry 98 96 Oxygen Delivery Method Room Air Room Air Room Air Sepsis Recent Fever Within 48 Hours No Sepsis New/Unexplained Change in Mental Status N/A Sepsis Action Taken by Nursing No Action Required 04/18/24 20:06 04/18/24 20:20 04/18/24 21:33 Temperature Temperature Source Pulse Rate 91 H 102 H Pulse Rate from SpO2 Sensor Pulse Rhythm Regular Respiratory Rate 17 Respiratory Effort / Characteristics Non-Labored Spontaneous Respiratory Depth Normal Respiratory Pattern Regular Blood Pressure 154/85 H Blood Pressure Mean 108 Pulse Oximetry 96 Oxygen Delivery Method Room Air Room Air Sepsis Recent Fever Within 48 Hours Sepsis New/Unexplained Change in Mental Status Sepsis Action Taken by Nursing 04/18/24 22:00 Temperature Temperature Source Pulse Rate 97 H Pulse Rate from SpO2 Sensor 95 H Pulse Rhythm Respiratory Rate 22 Respiratory Effort / Characteristics Respiratory Depth Respiratory Pattern Blood Pressure 156/103 H Blood Pressure Mean 120 Pulse Oximetry 94 Oxygen Delivery Method Sepsis Recent Fever Within 48 Hours Sepsis New/Unexplained Change in Mental Status Sepsis Action Taken by Nursing Laboratory Data 04/18/24 20:01 04/18/24 20:01 Lab Results 04/18/24 04/18/2404/18/24 Range/Units 20:00 20:01 20:17 WBC 20.38 H (4.8-10.8) K/ul RBC 4.33 L (4.70-6.10) M/uL Hgb 14.1 (14.0-18.0) g/dl Hct 41.2 L (42.0-52.0) % MCV 95.2 (80.0-100.0) fL MCH 32.6 (25.0-34.0) pg MCHC 34.2 (32.0-36.0) g/dL RDW Std Deviation 48.6 H (36.4-46.3) fL RDW Coeff of Rodolfo 13.7 (11.5-14.5) % Plt Count 257 (130-400) K/uL MPV 10.6 (9.4-12.4) fL Immature Gran % (Auto) 0.3 % Neut % (Auto) 79.3 % Lymph % (Auto) 14.8 % [place] % (Auto) 5.4 % Eos % (Auto) 0.1 % Baso % (Auto) 0.1 % Neut # (Auto) 16.14 H (1.40-6.50) K/uL Lymph # (Auto) 3.01 (1.20-3.40) K/uL [place] # (Auto) 1.10 H (0.11-0.59) K/uL Eos # (Auto) 0.03 (0.00-0.50) K/uL Baso # (Auto) 0.03 (0.00-0.20) K/uL Immature Gran # (Auto) 0.07 (0.01-0.20) K/uL PT 11.7 (9.0-12.0) Seconds INR 1.1 (0.9-1.1) VBG pH 7.42 H (7.36-7.41) VBG pCO2 49 (38-50) mmHg VBG pO2 24 mmHg VBG HCO3 32 mmol/L VBG O2 Saturation < 60.0 % VBG Base Excess 6.1 mEq/L Sodium 135 L (136-145) mmol/L Potassium 4.3 (3.5-5.1) mmol/L Chloride 102 (98-107) mmol/L Carbon Dioxide 28 (21-32) mmol/L Anion Gap 5 (3-11) BUN 7 (6-23) mg/dl Creatinine 0.85 (0.6-1.4) mg/dl Est Cr Clr Drug Dosing 81.3 ml/min Est GFR ( Amer) 96.1 ml/min Est GFR (Non-Af Amer) 82.9 ml/min BUN/Creatinine Ratio 8.2 L (10-20) Glucose 96 (70-99(Fasting)) mg/dl Lactate (0.4-2.0) mmol/L Calcium 9.0 (8.6-10.3) mg/dl Magnesium 1.9 (1.7-2.4) mg/dl Total Bilirubin 0.6 (0.2-1.0) mg/dl AST 36 (13-39) U/L ALT 35 (7-52) U/L Alkaline Phosphatase 67 (34-104) U/L Troponin I High Sens 12.0 (0-20) pg/ml B-Natriuretic Peptide 165 H (0-100) pg/ml Total Protein 8.2 (6.0-8.3) gm/dl Albumin 3.5 (3.4-5.0) gm/dl Globulin 4.7 H (2.5-4.0) gm/dl Albumin/Globulin Ratio 0.7 L (0.9-2) Procalcitonin 0.05 (0-0.5) ng/ml Urine Color Urine Appearance (Clear) Urine pH (4.5-7.5) Ur Specific [place] (1.000-1.030) Urine Protein (Negative) Urine Glucose (UA) (Negative) Urine Ketones (Negative) Urine Blood (Negative) Urine Nitrite (Negative) Urine Bilirubin (Negative) Urine Urobilinogen (Negative) Ur Leukocyte Esterase (Negative) Urine WBC (Auto) (0-5) /hpf Urine RBC (Auto) (0-2) /hpf U Hyaline Cast (Auto) (0-2) /lpf U Epithel Cells (Auto) (0-2) /hpf Urine Bacteria (Auto) (None Seen) SARS-CoV-2, RNA, NAAT POSITIVE A (NEGATIVE) 04/18/24 04/18/24 Range/Units 21:12 21:15 WBC (4.8-10.8) K/ul RBC (4.70-6.10) M/uL Hgb (14.0-18.0) g/dl Hct (42.0-52.0) % MCV (80.0-100.0) fL MCH (25.0-34.0) pg MCHC (32.0-36.0) g/dL RDW Std Deviation (36.4-46.3) fL RDW Coeff of Rodolfo (11.5-14.5) % Plt Count (130-400) K/uL MPV (9.4-12.4) fL Immature Gran % (Auto) % Neut % (Auto) % Lymph % (Auto) % [place] % (Auto) % Eos % (Auto) % Baso % (Auto) % Neut # (Auto) (1.40-6.50) K/uL Lymph # (Auto) (1.20-3.40) K/uL [place] # (Auto) (0.11-0.59) K/uL Eos # (Auto) (0.00-0.50) K/uL Baso # (Auto) (0.00-0.20) K/uL Immature Gran # (Auto) (0.01-0.20) K/uL PT (9.0-12.0) Seconds INR (0.9-1.1) VBG pH (7.36-7.41) VBG pCO2 (38-50) mmHg VBG pO2 mmHg VBG HCO3 mmol/L VBG O2 Saturation % VBG Base Excess mEq/L Sodium (136-145) mmol/L Potassium (3.5-5.1) mmol/L Chloride (98-107) mmol/L Carbon Dioxide (21-32) mmol/L Anion Gap (3-11) BUN (6-23) mg/dl Creatinine (0.6-1.4) mg/dl Est Cr Clr Drug Dosing ml/min Est GFR ( Amer) ml/min Est GFR (Non-Af Amer) ml/min BUN/Creatinine Ratio (10-20) Glucose (70-99(Fasting)) mg/dl Lactate 1.8 (0.4-2.0) mmol/L Calcium (8.6-10.3) mg/dl Magnesium (1.7-2.4) mg/dl Total Bilirubin (0.2-1.0) mg/dl AST (13-39) U/L ALT (7-52) U/L Alkaline Phosphatase (34-104) U/L Troponin I High Sens (0-20) pg/ml B-Natriuretic Peptide (0-100) pg/ml Total Protein (6.0-8.3) gm/dl Albumin (3.4-5.0) gm/dl Globulin (2.5-4.0) gm/dl Albumin/Globulin Ratio (0.9-2) Procalcitonin (0-0.5) ng/ml Urine Color Yellow Urine Appearance Clear (Clear) Urine pH 7.5 (4.5-7.5) Ur Specific [place] 1.017 (1.000-1.030) Urine Protein Negative (Negative) Urine Glucose (UA) Negative (Negative) Urine Ketones Negative (Negative) Urine Blood Negative (Negative) Urine Nitrite Negative (Negative) Urine Bilirubin Negative (Negative) Urine Urobilinogen Negative (Negative) Ur Leukocyte Esterase Trace H (Negative) Urine WBC (Auto) 0-5 (0-5) /hpf Urine RBC (Auto) 0-2 (0-2) /hpf U Hyaline Cast (Auto) 0-2 (0-2) /lpf U Epithel Cells (Auto) 0-2 (0-2) /hpf Urine Bacteria (Auto) None Seen (None Seen) SARS-CoV-2, RNA, NAAT (NEGATIVE) Administered Medications Piperacillin Sod/Tazobactam Sod (Zosyn) 4.5 gm in 100 mls @ 200 mls/hr IV NOW ONE Stop: 04/18/24 23:06 Last Admin: 04/18/24 22:50 Dose: 200 mls/hr Documented By: FRAN Discontinued Medications Albuterol (Albut/Ipratrop 3mg/0.5mg Neb 3 Ml Vial) 3 ml NEB NOW STA; Protocol Stop: 04/18/24 20:36 Last Admin: 04/18/24 20:39 Dose: 3 ml Documented By: FRAN Ioversol (Optiray 320 125ml) 120 ml IV ONCE ONE Stop: 04/18/24 21:07 Last Admin: 04/18/24 21:07 Dose: 120 ml Documented By: ALYSSA Imaging Data Radiologist's Impression: Chest CTA 04/18/24 20:06 Exam(s): CTA CHEST IV Amt: 120 ml optiray 320 EXAM: CT Angiography Chest With Intravenous Contrast CLINICAL HISTORY: Reason for exam: PE. TECHNIQUE: Axial computed tomographic angiography images of the chest with intravenous contrast. CTDI is 23.77 mGy and DLP is 844.8 mGy-cm. Automated exposure control was utilized for the study. A dose lowering technique was utilized adhering to the principles of ALARA. MIP reconstructed images were created and reviewed. COMPARISON: August 28, 2020 FINDINGS: Pulmonary arteries: The pulmonary arterial tree is well opacified with contrast. No pulmonary embolism is identified. Aorta: The aortic root is slightly ectatic measuring 4.1 cm. The aortic arch is nondilated measuring 3.7 cm. No dissection. Lungs: Central bronchial wall thickening with scattered areas of infiltrate in both lower lobes consistent with bronchitis and developing pneumonia. Small amount of emphysema in both lower lobes as well. No mass. Pleural space: Unremarkable. No significant effusion. No pneumothorax. Heart: The heart is mildly enlarged. Moderate to severe coronary calcification is present. No pericardial effusion. No evidence of RV dysfunction. Bones/joints: No acute fracture. No dislocation. Soft tissues: Unremarkable. Lymph nodes: Unremarkable. No enlarged lymph nodes. IMPRESSION: 1. The aortic root is slightly ectatic measuring 4.1 cm. The aortic arch is nondilated measuring 3.7 cm. No dissection. 2. Central bronchial wall thickening with scattered areas of infiltrate in both lower lobes consistent with bronchitis and developing pneumonia. 3. The pulmonary arterial tree is well opacified with contrast. No pulmonary embolism is identified. 4. The heart is mildly enlarged. Moderate to severe coronary calcification is present. No pericardial effusion. Electronically signed by: Dominick Song MD 04/18/24 22:35 PM Discharge Plan Visit Data Chief Complaint: Respiratory Problems Stated Complaint: COVID + - COUGH, DIFFICULTY BREATHING ED Provider: Lashawn Guaman Discharge Problem: Shortness of breath, Cough, Leukocytosis, Pneumonia, COVID-19, Sepsis Forms Stand Alone Forms: [facility] [employer] Prescriptions Prescriptions: No Action pravastatin 40 mg tablet 40 mg PO DAILY Eliquis 5 mg tablet 5 mg PO BID Qty: 180 3RF diltiazem HCl 120 mg capsule,extended release 24hr 120 mg PO PM Qty: 90 3RF nitroglycerin 0.4 mg tablet, sublingual 0.4 mg sublingual Q5M PRN (Reason: Chest Pain) Rx Instructions: do not exceed 3 doses per episode tamsulosin 0.4 mg capsule 0.4 mg PO DAILY Qty: 30 2RF magnesium oxide 400 mg (241.3 mg magnesium) tablet 400 mg PO PM albuterol sulfate 90 mcg/actuation aerosol powdr breath activated 2 inh inhalation Q6H PRN (Reason: shortness of breath or wheezing) Qty: 1 0RF benzonatate 100 mg capsule 100 mg PO TID PRN (Reason: cough) Qty: 30 0RF Rx Instructions: take one to two tablets three times a day for cough (may make you sleepy) multivitamin Tablet 1 tab PO DAILY hydroxychloroquine [Plaquenil] 200 mg tablet 200 mg PO HS Qty: 90 1RF acetaminophen [Tylenol Extra Strength] 500 mg Tablet 1,000 mg PO Q6H PRN (Reason: Pain) prednisone 5 mg tablet 5 mg PO QAM aspirin 81 mg tablet,delayed release (DR/EC) 81 mg PO QPM ondansetron 4 mg tablet,disintegrating 4 mg PO Q8H PRN (Reason: nausea and vomiting) Qty: 30 0RF Referrals Referrals: Ethel Dan MD [Primary Care Provider] -
[2024-04-18] MEDS: ALBUT/IPRATROP 3MG/0.5MG NEB 3 ML VIAL NEB STA (20:39)
[2024-04-18 20:43] LABS: INR 1.1 (0.9-1.1); Prothrombin Time 11.7 Seconds (9.0-12.0)
[2024-04-18 20:54] LABS: Albumin Globulin Ratio 0.7 (0.9-2); Albumin Level 3.5 gm/dl (3.4-5.0); BUN Creatinine Ratio 8.2 (10-20); Bilirubin,Total 0.6 mg/dl (0.2-1.0); Creatinine Clr Calc Pharmacy 81.3 ml/min; Est GFR (African American) 96.1 ml/min; Est GFR (Non-African American) 82.9 ml/min; Globulin 4.7 gm/dl (2.5-4.0); Magnesium 1.9 mg/dl (1.7-2.4); Potassium 4.3 mmol/L (3.5-5.1); Total Protein 8.2 gm/dl (6.0-8.3)
[2024-04-18] MEDS: OPTIRAY 320 125ml IV ONE (21:07)
[2024-04-18 21:27] LABS: Appearance Urine Clear (Clear); Bacteria Urine Automated None Seen (None Seen); Bilirubin Urine Negative (Negative); Blood Urine Negative (Negative); Cast Urine Automated 0-2 /lpf (0-2); Color Urine Yellow; Epithelial Cell Urine Auto 0-2 /hpf (0-2); Glucose Urine UA Negative (Negative); Ketones Urine Negative (Negative); Leukocyte Esterase Urine Trace (Negative); Nitrite Urine Negative (Negative); Protein Urine Negative (Negative); RBC Urine Automated 0-2 /hpf (0-2); Specific Gravity Urine 1.017 (1.000-1.030); Urobilinogen Urine Negative (Negative); WBC Urine Automated 0-5 /hpf (0-5); pH Urine 7.5 (4.5-7.5)
--- NOTE | 2024-04-18 22:35 | CT Scan Report ---
Exam(s): CTA CHEST IV Amt: 120 ml optiray 320 EXAM: CT Angiography Chest With Intravenous Contrast CLINICAL HISTORY: Reason for exam: PE. TECHNIQUE: Axial computed tomographic angiography images of the chest with intravenous contrast. CTDI is 23.77 mGy and DLP is 844.8 mGy-cm. Automated exposure control was utilized for the study. A dose lowering technique was utilized adhering to the principles of ALARA. MIP reconstructed images were created and reviewed. COMPARISON: August 28, 2020 FINDINGS: Pulmonary arteries: The pulmonary arterial tree is well opacified with contrast. No pulmonary embolism is identified. Aorta: The aortic root is slightly ectatic measuring 4.1 cm. The aortic arch is nondilated measuring 3.7 cm. No dissection. Lungs: Central bronchial wall thickening with scattered areas of infiltrate in both lower lobes consistent with bronchitis and developing pneumonia. Small amount of emphysema in both lower lobes as well. No mass. Pleural space: Unremarkable. No significant effusion. No pneumothorax. Heart: The heart is mildly enlarged. Moderate to severe coronary calcification is present. No pericardial effusion. No evidence of RV dysfunction. Bones/joints: No acute fracture. No dislocation. Soft tissues: Unremarkable. Lymph nodes: Unremarkable. No enlarged lymph nodes. IMPRESSION: 1. The aortic root is slightly ectatic measuring 4.1 cm. The aortic arch is nondilated measuring 3.7 cm. No dissection. 2. Central bronchial wall thickening with scattered areas of infiltrate in both lower lobes consistent with bronchitis and developing pneumonia. 3. The pulmonary arterial tree is well opacified with contrast. No pulmonary embolism is identified. 4. The heart is mildly enlarged. Moderate to severe coronary calcification is present. No pericardial effusion. Electronically signed by: Dominick Song MD 04/18/24 22:35 PM
[2024-04-18] MEDS: PIPERACILLIN/TAZOBACTAM 4.5 GM/100 ML BAG IV ONE (22:50)
--- NOTE | 2024-04-18 23:12 | History & Physical Report ---
Date of Service April 18, 2024 Assessment & Plan (1) COVID-19: Plan: 78yo male presenting with 8 days of persistent cough, generalized weakness and fatigue. Worsening shortness of breath with laying down as well as worsening coughing fits during this week. Patient tested POSITIVE for Covid-19 on 04/13/24. Adequate oxygenation on room air. Main complaint at this time is his continuous cough, inability to rest as well as shortness of breath. -Admit to medical -Maintain isolation precautions -Tylenol PRN pain or fever -Zofran PRN nausea -Continue Apixaban 5mg po BID (2) Pneumonia: Plan: Patient technically meets sepsis criteria - present on admission - with elevated HR of 97 currently as well as neutrophil predominant leukocytosis with WBC=20.38. Uncertain if patient's leukocytosis is secondary to his recent increased steroid dose? His procalcitonin thus far remains within normal range. CT of the chest as above with findings concerning for bronchitis/early PNA. Also with elevated BNP at 165. Patient has not been given IVF due to concern for CHF and orthopnea. -Follow cultures sent from the ER. Of note, blood cultures were drawn after patient received approximately 5 minutes of Zosyn infusion. Infusion was paused and cultures were drawn -Ceftriaxone 2gm IV daily -Azithromycin -Tylenol, Zofran PRN -Mucinex BID -Hycodan cough medication - 5ml po q 4 hours as needed -Flutter valve and incentive spirometry -Albuterol nebs PRN - reportedly wheezing upon arrival Plan Atrial fibrillation - paroxysmal. rate controlled at present. Anticoagulated on Apixaban -Continue Apixaban -Continue Diltiazem CAD - with history of prior [place] s/p stent to LAD. patient denies chest pain. No acute ischemic changes present on EKG. Troponin x 1 is WNL. -Continue ASA -Continue Pravastatin Rheumatoid arthritis - chronic. stable -Continue Plaquenil 200mg po qHS -Continue Prednisone 5mg po daily -Monitor for adrenal insufficiency in acute illness with chronic steroid use BPH - chronic. stable -Continue Tamsulosin F/E/N - Saline lock. Electrolytes WNL. AHA diet as tolerated Ppx - Continue home Apixaban Code - Full per discussion with patient Dispo -Admit to medical History of Present Illness Chief Complaint: cough, fatigue Primary Care Provider: MD Albert Walter is a pleasant 78yo male with history of CAD s/p [place] with stent to LAD, AF on Eliquis anticoagulation and RA on daily Prednisone 5mg presenting from home with persistent cough. Patient reports that his cough began on 04/11/24 - dry initially. He was seen at [facility] on 04/13/24 and found to be positive for Covid-19. He was given Tessalon and Albuterol which he has been taking with minimal improvement. He reports that his symptoms have worsened over the last week. He has persistent, ongoing cough which is keeping him awake at night. He has had several occasions of nausea following cough as well as inability to catch his breath. He also reports having worsening cough and shortness of breath when he lays back. His sputum has changed and is slightly yellow in color at this time. Also with generalized weakness and fatigue. He has taken several doses of Codeine cough medicine that he had left over from a prior illness which provided him with some relief. He typically takes Prednisone 5mg daily - took extra today 15mg total. No Paxlovid due to being on Apixaban In the ER he is afebrile, elevated HR=97 currently. Adequate oxygenation on room air 93-98% ER Course: Zosyn 4.5 gm Albuterol Allergies Allergy/AdvReac Type Severity Reaction Status Date / Time benzyl alcohol Allergy Intermediate swelling, Verified 04/18/24 23:57 infection etanercept Allergy Intermediate swelling, Verified 04/18/24 23:57 infection tromethamine Allergy Intermediate swelling, Verified 04/18/24 23:57 infection Home Medications Medication Instructions Recorded Confirmed Type magnesium oxide 400 mg (241.3 mg 400 mg PO PM 09/10/19 04/18/24 History magnesium) tablet acetaminophen 500 mg tablet 1,000 mg PO Q6H PRN Pain 08/28/20 04/18/24 History (Tylenol Extra Strength) aspirin 81 mg tablet,delayed 81 mg PO QPM 10/19/20 04/18/24 History release prednisone 5 mg tablet 5 mg PO QAM 10/30/21 04/18/24 History nitroglycerin 0.4 mg sublingual 0.4 mg sublingual Q5M PRN Chest 05/25/22 04/18/24 History tablet Pain tamsulosin 0.4 mg capsule 0.4 mg PO DAILY #30 caps 05/25/22 04/18/24 Rx ondansetron 4 mg disintegrating 4 mg PO Q8H PRN nausea and 07/18/22 04/18/24 Rx tablet vomiting #30 tabs apixaban 5 mg tablet (Eliquis) 5 mg PO BID #180 tabs 08/23/23 04/18/24 Rx diltiazem HCl 120 mg 120 mg PO PM #90 caps 08/23/23 04/18/24 Rx capsule,extended release 24 hr pravastatin 40 mg tablet 40 mg PO DAILY 09/02/23 04/18/24 History multivitamin 1 tab PO DAILY 11/15/23 04/18/24 History hydroxychloroquine 200 mg tablet 200 mg PO HS #90 tabs 03/03/24 04/18/24 Rx (Plaquenil) albuterol sulfate 90 mcg/actuation 2 inh inhalation Q6H PRN shortness 04/13/24 04/18/24 Rx breath activated powder inhaler of breath or wheezing #1 ea benzonatate 100 mg capsule 100 mg PO TID PRN cough #30 caps 04/13/24 04/18/24 Rx guaifenesin 100 mg/5 mL oral liquid 200 mg PO Q4H PRN Cough 04/18/24 04/18/24 History Past Med/Surg History Problem List (Updated 04/18/24 @ 23:54 by Summer Song DO) Sepsis (Acute) COVID-19 (Acute) Pneumonia (Acute) Leukocytosis (Acute) Cough (Acute) Shortness of breath (Acute) Syncope Sensorineural hearing loss (SNHL) of right ear with restricted hearing of left ear Long-term current use of steroids Anticoagulant long-term use COVID-19 (Acute) Paroxysmal ventricular tachycardia Encounter for pre-operative examination Pulmonary hypertension Pericardial effusion with cardiac tamponade DVT prophylaxis Pericarditis Person under investigation for COVID-19 (Acute) Chest pain (Acute) Rheumatoid arthritis Hypomagnesemia Dyslipidemia Paroxysmal atrial fibrillation S/P coronary artery stent placement (Acute) CAD (coronary artery disease) (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 Medical History (Updated 04/18/24 @ 23:54 by Summer Song DO) Rheumatoid arthritis Dyslipidemia CAD in [place] artery Atrial fibrillation History of pericarditis Myocardial infarction 2011 Surgical History History of cataract surgery right History of cholecystectomy History of spinal fusion History of cardiac cath formerly [facility] [place] H/[place] heart artery stent x 1 (2011) Family History Father Colon cancer Other No family history of adverse response to anesthesia Social History Smoking Status: Never smoker Second Hand Exposure: No; Do You Dip or Chew Tobacco: No; Hx Alcohol Use: No Hx Substance Use: No Preferred Language: Citizen Of [place] Communication Ability: Effective Top Former Required: No Beliefs That Will Affect Care: None Current Living Situation: Spouse Feels Safe at Home: Yes Assistive Devices: Denture - Lower Review of Systems Review of Systems: All systems reviewed & are unremarkable except as noted in HPI & below Physical Exam Physical Exam: General: patient appears ill, oriented x 4, coughing throughout exam Skin: warm, dry, intact, no rashes or lesions HEENT: NC/AT, PERRL, EOMI, anicteric sclera, conjunctiva without injection, external ear normal to inspection and nontender, nares patent, moist mucus membranes, dentition intact, no oropharyngeal lesions, neck supple, trachea mid line, no LAD, no thyromegaly, no JVD Heart: +S1/S2, irregularly irregular, no m/r/g Lungs: equal air entry bilaterally, +anterior crackles appreciated, no rhonchi or wheezing Abd: +BS, soft, NT/ND, no masses/organomegaly/ascites Ext: warm, 2+ pulses in UE/LE bilaterally, no clubbing/cyanosis or edema Neuro: nonfocal, patient AA&O x 4, speech intact, no facial droop, moving all extremities on command with equal strength 5/5 Results & Data Results & Data Vital Signs (Past 12 Hours) Vital Signs Temp Pulse Resp BP Pulse Ox O2 Del Method 04/18/24 22:00 97 H 22 156/103 H 94 04/18/24 21:33 102 H 17 154/85 H 04/18/24 20:20 Room Air 04/18/24 20:06 91 H 96 Room Air 04/18/24 20:05 95 H 140/83 96 Room Air 04/18/24 19:51 36.9 C 104 H 18 165/75 H 98 Room Air 04/18/24 19:48 Room Air Laboratory Results Laboratory Results WBC 20.38 K/ul (4.8-10.8) H 04/18/24 20:01 RBC 4.33 M/uL (4.70-6.10) L 04/18/24 20:01 Hgb 14.1 g/dl (14.0-18.0) 04/18/24 20:01 Hct 41.2 % (42.0-52.0) L 04/18/24 20:01 MCV 95.2 fL (80.0-100.0) 04/18/24 20: MCH 32.6 pg (25.0-34.0) 04/18/24 20: MCHC 34.2 g/dL (32.0-36.0) 04/18/24 20:01 RDW Std Deviation 48.6 fL (36.4-46.3) H 04/18/24 20:01 RDW Coeff of Rodolfo 13.7 % (11.5-14.5) 04/18/24 20: Plt Count 257 K/uL (130-400) 04/18/24 20:01 MPV 10.6 fL (9.4-12.4) 04/18/24 20:01 Immature Gran % (Auto) 0.3 % 04/18/24 20:01 Neut % (Auto) 79.3 % 04/18/24 20:01 Lymph % (Auto) 14.8 % 04/18/24 20:01 [place] % (Auto) 5.4 % 04/18/24 20: Eos % (Auto) 0.1 % 04/18/24 20:01 Baso % (Auto) 0.1 % 04/18/24 20:01 Neut # (Auto) 16.14 K/uL (1.40-6.50) H 04/18/24 20:01 Lymph # (Auto) 3.01 K/uL (1.20-3.40) 04/18/24 20:01 [place] # (Auto) 1.10 K/uL (0.11-0.59) H 04/18/24 20:01 Eos # (Auto) 0.03 K/uL (0.00-0.50) 07/13/24 20:01 Baso # (Auto) 0.03 K/uL (0.00-0.20) 04/18/24 20:01 Immature Gran # (Auto) 0.07 K/uL (0.01-0.20) 04/18/24 20:01 PT 11.7 Seconds (9.0-12.0) 04/18/24 20: INR 1.1 (0.9-1.1) 04/18/24 20: VBG pH 7.42 (7.36-7.41) H 04/18/24 20:17 VBG pCO2 49 mmHg (38-50) 04/18/24 20: VBG pO2 24 mmHg 04/18/24 20: VBG HCO3 32 mmol/L 04/18/24 20:17 VBG O2 Saturation < 60.0 % 04/18/24 20:17 VBG Base Excess 6.1 mEq/L 04/18/24 20:17 Sodium 135 mmol/L (136-145) L 04/18/24 20:01 Potassium 4.3 mmol/L (3.5-5.1) 04/18/24 20: Chloride 102 mmol/L (98-107) 04/18/24 20:01 Carbon Dioxide 28 mmol/L (21-32) 04/18/24 20:01 Anion Gap 5 (3-11) 04/18/24 20:01 BUN 7 mg/dl (6-23) 04/18/24 20:01 Creatinine 0.85 mg/dl (0.6-1.4) 04/18/24 20: Est Cr Clr Drug Dosing 81.3 ml/min 04/18/24 20:01 Est GFR ( Amer) 96.1 ml/min 04/18/24 20:01 Est GFR (Non-Af Amer) 82.9 ml/min 04/18/24 20:01 BUN/Creatinine Ratio 8.2 (10-20) L 04/18/24 20:01 Glucose 96 mg/dl (70-99(Fasting)) 04/18/24 20:01 Lactate 1.8 mmol/L (0.4-2.0) 04/18/24 21:15 Calcium 9.0 mg/dl (8.6-10.3) 04/18/24 20:01 Magnesium 1.9 mg/dl (1.7-2.4) 04/18/24 20:01 Total Bilirubin 0.6 mg/dl (0.2-1.0) 04/18/24 20:01 AST 36 U/L (13-39) 04/18/24 20:01 ALT 35 U/L (7-52) 04/18/24 20:01 Alkaline Phosphatase 67 U/L (34-104) 04/18/24 20:01 Troponin I High Sens 12.0 pg/ml (0-20) 04/18/24 20:01 B-Natriuretic Peptide 165 pg/ml (0-100) H 04/18/24 20:01 Total Protein 8.2 gm/dl (6.0-8.3) 04/18/24 20:01 Albumin 3.5 gm/dl (3.4-5.0) 04/18/24 20:01 Globulin 4.7 gm/dl (2.5-4.0) H 04/18/24 20:01 Albumin/Globulin Ratio 0.7 (0.9-2) L 04/18/24 20:01 Procalcitonin 0.05 ng/ml (0-0.5) 04/18/24 20:01 Urine Color Yellow 04/18/24 21:12 Urine Appearance Clear (Clear) 04/18/24 21:12 Urine pH 7.5 (4.5-7.5) 04/18/24 21:12 Ur Specific [place] 1.017 (1.000-1.030) 04/18/24 21:12 Urine Protein Negative (Negative) 04/18/24 21:12 Urine Glucose (UA) Negative (Negative) 04/18/24 21:12 Urine Ketones Negative (Negative) 04/18/24 21:12 Urine Blood Negative (Negative) 04/18/24 21:12 Urine Nitrite Negative (Negative) 04/18/24 21:12 Urine Bilirubin Negative (Negative) 04/18/24 21:12 Urine Urobilinogen Negative (Negative) 04/18/24 21:12 Ur Leukocyte Esterase Trace (Negative) H 04/18/24 21:12 Urine WBC (Auto) 0-5 /hpf (0-5) 04/18/24 21:12 Urine RBC (Auto) 0-2 /hpf (0-2) 04/18/24 21:12 U Hyaline Cast (Auto) 0-2 /lpf (0-2) 04/18/24 21:12 U Epithel Cells (Auto) 0-2 /hpf (0-2) 04/18/24 21:12 Urine Bacteria (Auto) None Seen (None Seen) 04/18/24 21:12 SARS-CoV-2, RNA, NAAT POSITIVE (NEGATIVE) A 04/18/24 20:00 Impressions Chest CTA 04/18/24 20:06 Exam(s): CTA CHEST IV Amt: 120 ml optiray 320 EXAM: CT Angiography Chest With Intravenous Contrast CLINICAL HISTORY: Reason for exam: PE. TECHNIQUE: Axial computed tomographic angiography images of the chest with intravenous contrast. CTDI is 23.77 mGy and DLP is 844.8 mGy-cm. Automated exposure control was utilized for the study. A dose lowering technique was utilized adhering to the principles of ALARA. MIP reconstructed images were created and reviewed. COMPARISON: August 28, 2020 FINDINGS: Pulmonary arteries: The pulmonary arterial tree is well opacified with contrast. No pulmonary embolism is identified. Aorta: The aortic root is slightly ectatic measuring 4.1 cm. The aortic arch is nondilated measuring 3.7 cm. No dissection. Lungs: Central bronchial wall thickening with scattered areas of infiltrate in both lower lobes consistent with bronchitis and developing pneumonia. Small amount of emphysema in both lower lobes as well. No mass. Pleural space: Unremarkable. No significant effusion. No pneumothorax. Heart: The heart is mildly enlarged. Moderate to severe coronary calcification is present. No pericardial effusion. No evidence of RV dysfunction. Bones/joints: No acute fracture. No dislocation. Soft tissues: Unremarkable. Lymph nodes: Unremarkable. No enlarged lymph nodes. IMPRESSION: 1. The aortic root is slightly ectatic measuring 4.1 cm. The aortic arch is nondilated measuring 3.7 cm. No dissection. 2. Central bronchial wall thickening with scattered areas of infiltrate in both lower lobes consistent with bronchitis and developing pneumonia. 3. The pulmonary arterial tree is well opacified with contrast. No pulmonary embolism is identified. 4. The heart is mildly enlarged. Moderate to severe coronary calcification is present. No pericardial effusion. Electronically signed by: Dominick Song MD 04/18/24 22:35 PM ECG Additional Comments: EKG with AF at 97bpm, normal axis, QRS=76, KSr=629, no acute ischemic changes PG Care Time/CCT Total # of Minutes Spent Total Time Spent with Patient: Total time spent is greater than 50% in coordination of care (as documented) at patient's floor/unit and/or counseling patient: Coding Level of Care Code 16363 INT INP/OBS CARE 2/55MIN Diagnoses COVID-19 U07.1 Pneumonia J18.9
[2024-04-19] MEDS: SODIUM CHLORIDE 0.9% 1,000 ML IV ONE (00:13)
[2024-04-19] MEDS ORDERED: ONDANSETRON INJ 2 MG/ML 2 ML VIAL IV PRN (02:40)
[2024-04-19 03:02] LABS: Phosphorus 3.3 mg/dl (2.5-4.9)
[2024-04-19] MEDS: cefTRIAXone SODIUM 2,000 MG/50 ML BAG IV SCH (03:09)
[2024-04-19] MEDS: AZITHROMYCIN 500 MG in DEXTROSE 5% 250 ML IV STA (03:44)
[2024-04-19] MEDS: ALBUTEROL 0.083% NEBU SOLN 3 ML VIAL NEB PRN (04:01)
[2024-04-19 06:57] LABS: Hematocrit (blood only) 36.5 % (42.0-52.0); Hemoglobin 12.7 g/dl (14.0-18.0); Mean Corpuscular Hemoglobin 33.2 pg (25.0-34.0); Mean Corpuscular Hgb Conc 34.8 g/dL (32.0-36.0); Mean Corpuscular Volume 95.3 fL (80.0-100.0); Mean Platelet Volume 11.1 fL (9.4-12.4); Platelet Count 238 K/uL (130-400); RDW Coefficient of Variation 13.9 % (11.5-14.5); RDW Standard Deviation 48.4 fL (36.4-46.3); Red Blood Count 3.83 M/uL (4.70-6.10); White Blood Count 13.33 K/ul (4.8-10.8)
[2024-04-19 07:19] LABS: BUN Creatinine Ratio 8.5 (10-20); Calcium 7.8 mg/dl (8.6-10.3); Creatinine Clr Calc Pharmacy 97.3 ml/min; Est GFR (African American) 103.4 ml/min; Est GFR (Non-African American) 89.2 ml/min; Potassium 3.8 mmol/L (3.5-5.1)
[2024-04-19] MEDS: APIXABAN 5 MG TABLET PO SCH (08:06)
[2024-04-19] MEDS: TAMSULOSIN HCL 0.4 MG CAP PO SCH (08:07)
[2024-04-19] MEDS: guaiFENesin 600 MG TABCR PO SCH (08:07)
[2024-04-19] MEDS: predniSONE 5 MG TAB PO SCH (08:07)
--- NOTE | 2024-04-19 08:42 | XRay Report ---
XR chest 1V portable HISTORY: Dyspnea COMPARISON: Chest 11/15/2023. FINDINGS: The heart remains mildly enlarged. No pneumothorax. No pleural effusions. Cervical spinal f usion hardware is noted. Patchy and linear bibasilar densities have slightly progressed. IMPRESSION: Patchy and linear bibasilar densities have slightly progressed. This may represent a pneumonia. ACT 112: Negative or not required by law. Electronically signed by: Andre Ramires M.D. 04/19/2024 8:41 AM
--- NOTE | 2024-04-19 11:12 | Hospitalist Progress Note ---
Date of Service April 19, 2024 Assessment & Plan (1) COVID-19: Plan: 78yo male presenting with 8 days of persistent cough, generalized weakness and fatigue. Worsening shortness of breath with laying down as well as worsening coughing fits during this week. Patient tested POSITIVE for Covid-19 on 04/13/24. -On admission, it was apparent started on IV antibiotics azithromycin and ceftriaxone in case of bacterial superimposition -Upon examination this morning, patient feels a whole lot better. -No fevers or chills overnight. -Blood cultures negative so far -Maintain isolation precautions -Tylenol PRN pain or fever -Zofran PRN nausea -Continue Apixaban 5mg po BID (2) Pneumonia: Plan: Patient technically meets sepsis criteria - present on admission - with elevated HR of 97 currently as well as neutrophil predominant leukocytosis with WBC=20.38. Uncertain if patient's leukocytosis is secondary to his recent increased steroid dose? His procalcitonin thus far remains within normal range. CT of the chest as above with findings concerning for bronchitis/early PNA. Also with elevated BNP at 165. Patient has not been given IVF due to concern for CHF and orthopnea. -Much improved symptoms -Ceftriaxone 2gm IV daily -Azithromycin -Tylenol, Zofran PRN -Mucinex BID -Hycodan cough medication - 5ml po q 4 hours as needed -Flutter valve and incentive spirometry -Albuterol nebs PRN (3) Atrial fibrillation: Plan: Atrial fibrillation - paroxysmal. rate controlled at present. Anticoagulated on Apixaban -Continue Apixaban -Continue Diltiazem (4) Rheumatoid arthritis: Plan: Rheumatoid arthritis - chronic. stable -Continue Plaquenil 200mg po qHS -Continue Prednisone 5mg po daily -Monitor for adrenal insufficiency in acute illness with chronic steroid use (5) CAD in [place] artery: Plan: CAD - with history of prior [place] s/p stent to LAD. patient denies chest pain. No acute ischemic changes present on EKG. Troponin x 1 is WNL. -Continue ASA -Continue Pravastatin Plan Ppx - Continue home Apixaban Code - Full per discussion with patient Dispo -Continue hospitalization, hopefully discharge in next 24 to 48 hours Admission and Anticipated Discharge Date Admission Date: April 19, 2024 Subjective Patient seen and examined today, says he feels a lot better, his symptoms much improved. Review of Systems Review of Systems: All systems reviewed are negative, apart from the ones contained in the history. Physical Exam Physical Exam: The patient is awake, alert and oriented 3, well developed and well nourished, normocephalic and atraumatic, lying in bed and in no acute distress. HEENT--PERRL, EOMI, mucous membranes and oropharynx mildly dry Neck--supple. No JVD. No bruits. Thyroid normal, trachea midline, no adenopathy. Heart--normal S1 and S2. No murmurs, rubs or gallops. Lungs--Reduced and on auscultation Abdomen--normal bowel sounds and soft. Extremities--no cyanosis or clubbing. No edema. Dermatologic--normal skin turgor, normal color, no abnormal lymph nodes, no rash. Neurologic--cranial nerves II through XII grossly intact. Rheumatologic--normal range of motion. Psychiatric--normal affect. Results & Data Results & Data Vital Signs (Past 12 Hours) Vital Signs Temp Pulse Pulse Resp BP BP Pulse Ox 04/19/24 09:07 04/19/24 07:00 98.1 F 88 16 142/85 H 94 04/19/24 04:01 104 H 20 94 04/19/24 02:30 04/19/24 02:30 98.2 F 90 20 128/87 95 04/19/24 02:13 96 H 22 131/96 95 04/19/24 00:33 93 H 20 161/87 H 95 04/19/24 00:12 90 26 H 128/76 96 04/18/24 23:36 97 H 19 158/110 H O2 Del Method 04/19/24 09:07 Room Air 04/19/24 07:00 Room Air 04/19/24 04:01 Room Air 04/19/24 02:30 Room Air 04/19/24 02:30 Room Air 04/19/24 02:13 Room Air 04/19/24 00:33 Room Air 04/19/24 00:12 Room Air 04/18/24 23:36 PG Care Time/CCT Total # of Minutes Spent Total Time Spent with Patient: Total time spent is greater than 50% in coordination of care (as documented) at patient's floor/unit and/or counseling patient: Coding Level of Care Code 52798 SUB INP/OBS CARE 35MIN Diagnoses COVID-19 U07.1 Pneumonia J18.9 Atrial fibrillation I48.91 Rheumatoid arthritis M06.9 CAD in [place] artery I25.10 Time Spent (min) 35
--- NOTE | 2024-04-19 12:52 | Electrocardiogram Report ---
Test Reason : Blood Pressure : / mmHG Vent. Rate : 097 BPM Atrial Rate : 000 BPM P-R Int : 000 ms QRS Dur : 076 ms QT Int : 330 ms P-R-T Axes : 000 064 068 degrees QTc Int : 419 ms Atrial fibrillation Abnormal ECG When compared with ECG of 15-NOV-2023 16:24, Atrial fibrillation has replaced Sinus rhythm Vent. rate has increased BY 32 BPM Confirmed by Juan Bull ([id number]) on 04/19/2024 12:51:48 PM Referred By: Confirmed By:Juan Bull
[2024-04-19] MEDS: dilTIAZem HCL 120 MG CAPCR PO SCH (20:09)
[2024-04-19] MEDS: ASPIRIN 81 MG ECTAB PO SCH (20:09)
[2024-04-19] MEDS: COUGH DROP (SUGAR FREE) LOZ 24 LOZ/1 BOX BUCCAL ONE (22:07)
[2024-04-19] MEDS: HYDROcodone/HOMATROPINE SYRUP 5MG/1.5MG 5ML UDP PO PRN (22:11)
[2024-04-19] MEDS: AZITHROMYCIN 500 MG in DEXTROSE 5% 250 ML IV SCH (22:12)
[2024-04-19] MEDS ORDERED: Nursing to Pharmacy Communication SCH (23:45)
[2024-04-20] MEDS: PRAVASTATIN SOD 40 MG TAB PO SCH ×2 (00:32→08:18)
[2024-04-20] MEDS: HYDROXYCHLOROQUINE SULFATE 200 MG TAB PO SCH ×2 (00:32→08:18)
[2024-04-20] MEDS: ACETAMINOPHEN 325 MG TAB PO PRN (08:19)
--- NOTE | 2024-04-20 11:47 | Hospitalist Progress Note ---
Date of Service April 20, 2024 Assessment & Plan (1) COVID-19: Plan: 78yo male presenting with 8 days of persistent cough, generalized weakness and fatigue. Worsening shortness of breath with laying down as well as worsening coughing fits during this week. Patient tested POSITIVE for Covid-19 on 04/13/24. -On admission, He was empirically started on IV antibiotics azithromycin and ceftriaxone in case of bacterial superimposition -Upon examination this morning, patient feels a whole lot better. -No fevers or chills overnight. -Blood cultures negative so far -Maintain isolation precautions -Tylenol PRN pain or fever -Zofran PRN nausea -Continue Apixaban 5mg po BID -Hopefully discharge soon (2) Pneumonia: Plan: Patient technically meets sepsis criteria - present on admission - with elevated HR of 97 currently as well as neutrophil predominant leukocytosis with WBC=20.38. Uncertain if patient's leukocytosis is secondary to his recent increased steroid dose? His procalcitonin thus far remains within normal range. CT of the chest as above with findings concerning for bronchitis/early PNA. Also with elevated BNP at 165. Patient has not been given IVF due to concern for CHF and orthopnea. -Much improved symptoms -Ceftriaxone 2gm IV daily -Azithromycin -Tylenol, Zofran PRN -Mucinex BID -Hycodan cough medication - 5ml po q 4 hours as needed -Flutter valve and incentive spirometry -Albuterol nebs PRN (3) Atrial fibrillation: Plan: Atrial fibrillation - paroxysmal. rate controlled at present. Anticoagulated on Apixaban -Continue Apixaban -Continue Diltiazem (4) Rheumatoid arthritis: Plan: Rheumatoid arthritis - chronic. stable -Continue Plaquenil 200mg po qHS -Continue Prednisone 5mg po daily -Monitor for adrenal insufficiency in acute illness with chronic steroid use (5) CAD in [place] artery: Plan: CAD - with history of prior [place] s/p stent to LAD. patient denies chest pain. No acute ischemic changes present on EKG. Troponin x 1 is WNL. -Continue ASA -Continue Pravastatin Plan Ppx - Continue home Apixaban Code - Full per discussion with patient Dispo -Continue hospitalization, hopefully discharge in next 24 hours Admission and Anticipated Discharge Date Admission Date: April 18, 2024 Subjective Patient seen and examined today, says he feels a lot better, his symptoms much improved.Although he said he had a rough night Review of Systems Review of Systems: All systems reviewed are negative, apart from the ones contained in the history. Physical Exam Physical Exam: The patient is awake, alert and oriented 3, well developed and well nourished, normocephalic and atraumatic, lying in bed and in no acute distress. HEENT--PERRL, EOMI, mucous membranes and oropharynx mildly dry Neck--supple. No JVD. No bruits. Thyroid normal, trachea midline, no adenopathy. Heart--normal S1 and S2. No murmurs, rubs or gallops. Lungs--Reduced and on auscultation Abdomen--normal bowel sounds and soft. Extremities--no cyanosis or clubbing. No edema. Dermatologic--normal skin turgor, normal color, no abnormal lymph nodes, no rash. Neurologic--cranial nerves II through XII grossly intact. Rheumatologic--normal range of motion. Psychiatric--normal affect. Results & Data Results & Data Vital Signs (Past 12 Hours) Vital Signs Temp Pulse Resp BP Pulse Ox O2 Del Method 04/20/24 09:41 Room Air 04/20/24 07:45 98.2 F 90 16 112/74 95 Room Air PG Care Time/CCT Total # of Minutes Spent Total Time Spent with Patient: Total time spent is greater than 50% in coordination of care (as documented) at patient's floor/unit and/or counseling patient: Coding Level of Care Code 19134 SUB INP/OBS CARE 2/35MIN Diagnoses COVID-19 U07.1 Pneumonia J18.9 Atrial fibrillation I48.91 Rheumatoid arthritis M06.9 CAD in [place] artery I25.10 Time Spent (min) 35
[2024-04-21 08:29] LABS: Hematocrit (blood only) 39.8 % (42.0-52.0); Hemoglobin 13.5 g/dl (14.0-18.0); Mean Corpuscular Hemoglobin 32.1 pg (25.0-34.0); Mean Corpuscular Hgb Conc 33.9 g/dL (32.0-36.0); Mean Corpuscular Volume 94.8 fL (80.0-100.0); Mean Platelet Volume 10.8 fL (9.4-12.4); Platelet Count 310 K/uL (130-400); White Blood Count 11.33 K/ul (4.8-10.8)
[2024-04-21 08:43] LABS: BUN Creatinine Ratio 15.1 (10-20); Calcium 8.7 mg/dl (8.6-10.3); Creatinine Clr Calc Pharmacy 94.6 ml/min; Est GFR (African American) 102.2 ml/min; Est GFR (Non-African American) 88.2 ml/min; Potassium 4.5 mmol/L (3.5-5.1)
--- NOTE | 2024-04-21 12:09 | Hospitalist Progress Note ---
Date of Service April 21, 2024 Assessment & Plan (1) COVID-19: Plan: 78yo male presenting with 8 days of persistent cough, generalized weakness and fatigue. Worsening shortness of breath with laying down as well as worsening coughing fits during this week. Patient tested POSITIVE for Covid-19 on 04/13/24. -On admission, He was empirically started on IV antibiotics azithromycin and ceftriaxone in case of bacterial superimposition -Upon examination this morning, patient feels a whole lot better.Although with some residual weakness -No fevers or chills overnight. -Blood cultures negative so far -Maintain isolation precautions -Tylenol PRN pain or fever -Zofran PRN nausea -Continue Apixaban 5mg po BID -Hopefully discharge Tomorrow (2) Pneumonia: Plan: Now resolving Secondary to COVID-pneumonia -Much improved symptoms -Ceftriaxone 2gm IV daily -Azithromycin -Tylenol, Zofran PRN -Mucinex BID -Hycodan cough medication - 5ml po q 4 hours as needed -Flutter valve and incentive spirometry -Albuterol nebs PRN (3) Atrial fibrillation: Plan: Atrial fibrillation - paroxysmal. rate controlled at present. Anticoagulated on Apixaban -Continue Apixaban -Continue Diltiazem (4) Rheumatoid arthritis: Plan: Rheumatoid arthritis - chronic. stable -Continue Plaquenil 200mg po qHS -Continue Prednisone 5mg po daily -Monitor for adrenal insufficiency in acute illness with chronic steroid use (5) CAD in [place] artery: Plan: CAD - with history of prior [place] s/p stent to LAD. patient denies chest pain. No acute ischemic changes present on EKG. Troponin x 1 is WNL. -Continue ASA -Continue Pravastatin Plan Ppx - Continue home Apixaban Code - Full per discussion with patient Dispo -Continue hospitalization, hopefully discharge in next 24 hours Admission and Anticipated Discharge Date Admission Date: April 18, 2024 Subjective Patient seen and examined today, says he feels a lot better, his symptoms much improved. Review of Systems Review of Systems: All systems reviewed are negative, apart from the ones contained in the history. Physical Exam Physical Exam: The patient is awake, alert and oriented 3, well developed and well nourished, normocephalic and atraumatic, lying in bed and in no acute distress. HEENT--PERRL, EOMI, mucous membranes and oropharynx mildly dry Neck--supple. No JVD. No bruits. Thyroid normal, trachea midline, no adenopathy. Heart--normal S1 and S2. No murmurs, rubs or gallops. Lungs--Reduced and on auscultation Abdomen--normal bowel sounds and soft. Extremities--no cyanosis or clubbing. No edema. Dermatologic--normal skin turgor, normal color, no abnormal lymph nodes, no rash. Neurologic--cranial nerves II through XII grossly intact. Rheumatologic--normal range of motion. Psychiatric--normal affect. Results & Data Results & Data Vital Signs (Past 12 Hours) Vital Signs Temp Pulse Resp BP Pulse Ox O2 Del Method 04/21/24 09:36 Room Air 04/21/24 07:49 98.2 F 85 18 164/76 H 94 Room Air PG Care Time/CCT Total # of Minutes Spent Total Time Spent with Patient: Total time spent is greater than 50% in coordination of care (as documented) at patient's floor/unit and/or counseling patient: Coding Level of Care Code 09098 SUB INP/OBS CARE 2/35MIN Diagnoses COVID-19 U07.1 Pneumonia J18.9 Atrial fibrillation I48.91 Rheumatoid arthritis M06.9 CAD in [place] artery I25.10 Time Spent (min) 35
--- NOTE | 2024-04-22 09:54 | Discharge Summary ---
Date of Service April 22, 2024 Admission HPI Per Admitting Provider Albert Gatica is a pleasant 78yo male with history of CAD s/p [place] with stent to LAD, AF on Eliquis anticoagulation and RA on daily Prednisone 5mg presenting from home with persistent cough. Patient reports that his cough began on 04/11/24 - dry initially. He was seen at [facility] on 04/13/24 and found to be positive for Covid-19. He was given Tessalon and Albuterol which he has been taking with minimal improvement. He reports that his symptoms have worsened over the last week. He has persistent, ongoing cough which is keeping him awake at night. He has had several occasions of nausea following cough as well as inability to catch his breath. He also reports having worsening cough and shortness of breath when he lays back. His sputum has changed and is slightly yellow in color at this time. Also with generalized weakness and fatigue. He has taken several doses of Codeine cough medicine that he had left over from a prior illness which provided him with some relief. He typically takes Prednisone 5mg daily - took extra today 15mg total. No Paxlovid due to being on Apixaban In the ER he is afebrile, elevated HR=97 currently. Adequate oxygenation on room air 93-98% ER Course: Zosyn 4.5 gm Albuterol Principal Diagnosis COVID-19 pneumonia Discharge Exam The patient is awake, alert and oriented 3, well developed and well nourished, normocephalic and atraumatic, lying in bed and in no acute distress. HEENT--PERRL, EOMI, mucous membranes and oropharynx mildly dry Neck--supple. No JVD. No bruits. Thyroid normal, trachea midline, no adenopathy. Heart--normal S1 and S2. No murmurs, rubs or gallops. Lungs--Reduced and on auscultation Abdomen--normal bowel sounds and soft. Extremities--no cyanosis or clubbing. No edema. Dermatologic--normal skin turgor, normal color, no abnormal lymph nodes, no rash. Neurologic--cranial nerves II through XII grossly intact. Rheumatologic--normal range of motion. Psychiatric--normal affect. Discharge Data Allergies Allergy/AdvReac Type Severity Reaction Status Date / Time benzyl alcohol Allergy Intermediate swelling, Verified 04/18/24 23:57 infection etanercept Allergy Intermediate swelling, Verified 04/18/24 23:57 infection tromethamine Allergy Intermediate swelling, Verified 04/18/24 23:57 infection Consultations 04/18/24 23:03 ED Decision to Admit Stat Ordered Studies 04/18/24 20:06 CT for pulmonary embolism PE [CT angio chest PE protocol] Stat Hospital Course (1) COVID-19: 78yo male presenting with 8 days of persistent cough, generalized weakness and fatigue. Worsening shortness of breath with laying down as well as worsening coughing fits during this week. Patient tested POSITIVE for Covid-19 on 04/13/24. -On admission, He was empirically started on IV antibiotics azithromycin and ceftriaxone in case of bacterial superimposition -Upon examination this morning, patient feels a whole lot better.Although with some residual weakness -No fevers or chills overnight. -Blood cultures negative so far -Maintain isolation precautions -Tylenol PRN pain or fever -Zofran PRN nausea -Continue Apixaban 5mg po BID -Discharge home (2) Pneumonia: Now resolving Secondary to COVID-pneumonia -Much improved symptoms -Ceftriaxone 2gm IV daily -Azithromycin -Tylenol, Zofran PRN -Mucinex BID -Hycodan cough medication - 5ml po q 4 hours as needed -Flutter valve and incentive spirometry -Albuterol nebs PRN (3) Atrial fibrillation: Atrial fibrillation - paroxysmal. rate controlled at present. Anticoagulated on Apixaban -Continue Apixaban -Continue Diltiazem (4) Rheumatoid arthritis: Rheumatoid arthritis - chronic. stable -Continue Plaquenil 200mg po qHS -Continue Prednisone 5mg po daily -Monitor for adrenal insufficiency in acute illness with chronic steroid use (5) CAD in [place] artery: CAD - with history of prior [place] s/p stent to LAD. patient denies chest pain. No acute ischemic changes present on EKG. Troponin x 1 is WNL. -Continue ASA -Continue Pravastatin Plan Ppx - Continue home Apixaban Code - Full per discussion with patient Dispo -Discharge home Total Time Total Time Spent Total Time Spent (In Minutes): 35 Discharge Plan Discharge Items Patient Disposition: Home - Self-Care Reason For Visit: COUGH, COVID-19 Discharge Diagnosis: covid 19 PNA Activity: Resume your previous activity Non-emergency contact: Primary Care Provider Call non-emergency contact if: you have any medication questions Follow-up/Referrals: Ethel Dan MD [Primary Care Provider] - 04/29/24 3:25 pm Diet: Regular Addtl Attending Provider Instructions: please follow up with your regular PCP Pending Studies at Discharge: No Stand-Alone Forms: My [facility] [employer], Smoking Cessation Medications and DC Order Prescriptions: New guaifenesin [Mucinex] 600 mg Tablet Extended Release 12hr 1,200 mg PO Q12H Qty: 10 0RF azithromycin 500 mg tablet 500 mg PO DAILY 5 Days Qty: 5 0RF Continued pravastatin 40 mg tablet 40 mg PO DAILY Eliquis 5 mg tablet 5 mg PO BID Qty: 180 3RF diltiazem HCl 120 mg capsule,extended release 24hr 120 mg PO PM Qty: 90 3RF nitroglycerin 0.4 mg tablet, sublingual 0.4 mg sublingual Q5M PRN (Reason: Chest Pain) Rx Instructions: do not exceed 3 doses per episode tamsulosin 0.4 mg capsule 0.4 mg PO DAILY Qty: 30 2RF magnesium oxide 400 mg (241.3 mg magnesium) tablet 400 mg PO PM albuterol sulfate 90 mcg/actuation aerosol powdr breath activated 2 inh inhalation Q6H PRN (Reason: shortness of breath or wheezing) Qty: 1 0RF benzonatate 100 mg capsule 100 mg PO TID PRN (Reason: cough) Qty: 30 0RF Rx Instructions: take one to two tablets three times a day for cough (may make you sleepy) multivitamin Tablet 1 tab PO DAILY hydroxychloroquine [Plaquenil] 200 mg tablet 200 mg PO HS Qty: 90 1RF acetaminophen [Tylenol Extra Strength] 500 mg Tablet 1,000 mg PO Q6H PRN (Reason: Pain) prednisone 5 mg tablet 5 mg PO QAM aspirin 81 mg tablet,delayed release (DR/EC) 81 mg PO QPM ondansetron 4 mg tablet,disintegrating 4 mg PO Q8H PRN (Reason: nausea and vomiting) Qty: 30 0RF guaifenesin 100 mg/5 mL Liquid 200 mg PO Q4H PRN (Reason: Cough) Discharge Orders: Discharge Order (Routine); Ordered 04/22/24 Ordered By: Alva Mccann Admission Data Admit Date/Time: 04/18/24 23:37 Attending Provider: Alva Mccann Admit Provider: Summer Song Primary Care Provider: Ethel Dan Other Providers: Summer Song Coding Level of Care Code 20107 INP/OBS DISCH >30 MIN Diagnoses COVID-19 U07.1 Pneumonia J18.9 Atrial fibrillation I48.91 Rheumatoid arthritis M06.9 CAD in [place] artery I25.10 Time Spent (min) 35
== END 2024-04-22 12:45 | disposition home or self-care (01) | DRG 871 ==
LOC: ED 19:47 → 3N 04-19 01:23 → SUATTDRO 04-19 01:23 → 3N 04-19 02:13